=== PATIENT | female | born 1935 | race Caucasian/White ===

== ENCOUNTER 2016-12-03 13:25 | Emergency (ER) | payer MEDICARE, OTHER ==
--- NOTE | 2016-12-03 14:10 | ER Document Report ---
ED Medical Screen (RME) - General TRAVEL OUTSIDE OF THE [place] IN LAST 30 DAYS: No <PRISCILA SALGUERO - Last Filed: 12/03/16 14:08> <MAXIMO GARCIA - Last Filed: 12/03/16 20:06> - General Chief Complaint: Psych Problem Stated Complaint: PSYCH EVAL IVC WITH PAPERS Time Seen by Provider: 12/03/16 14:08 Notes: Patient is here under involuntary commitment because she says that her son is trying to get her morning. Her IVC paperwork says that the patient is spending all of her money irresponsibly. Patient has 10 children by 2 marriages and 1 of her children who is the son who took out her IVC paperwork. In the paperwork , he reports that the patient has been responding to a scan on the Internet to give her money. She admits having made contact with a man over the past 4 months and that she is to meet him soon. When questioned about how harris that may be, the patient says that she only knew her first and second husbands for matter of weeks each before she him. Patient has a history of atrial fibrillation on some medication, she does not know what. Hypothyroid. High cholesterol. Recent surgery for a rotator cuff tear. (PRISCILA SALGUERO) - Related Data Allergies/Adverse Reactions: ceftriaxone sodium [From Rocephin] Allergy (Verified 12/03/16 13:45) cholecalciferol (vitamin D3) [From Vitamin D] Allergy (Verified 12/03/16 13:45) ciprofloxacin [From Cipro] Allergy (Verified 12/03/16 13:45) ciprofloxacin HCl [From Cipro] Allergy (Verified 12/03/16 13:45) ergocalciferol (vitamin D2) [From Vitamin D] Allergy (Verified 12/03/16 13:45) Iodinated Contrast- Oral and IV Dye [IV Dye, Iodine Containing] Allergy ( Verified 12/03/16 13:45) Sulfa (Sulfonamide Antibiotics) Allergy (Verified 12/03/16 13:45) Home Medications: Current Home Medications Alendronate Sodium [Fosamax 70 mg Tablet] 1 tab PO .WEEKLY 12/03/16 [History] Apixaban [Eliquis 5 mg Tablet] 5 mg PO Q12 12/03/16 [History] Clonazepam [Klonopin] 0.5 mg PO QHS 12/03/16 [History] Clonazepam [Klonopin] 1 mg PO DAILY 12/03/16 [History] Fenofibrate 160 mg PO DAILY 12/03/16 [History] Levothyroxine Sodium [Synthroid 50 Mcg Tablet] 50 mcg PO DAILY 12/03/16 [History ] Ranitidine HCl [Zantac 150 mg Tablet] 150 mg PO BID 12/03/16 [History] Past Medical History - Past Medical History Cardiac Medical History: Reports: Hx Atrial Fibrillation, Hx Congestive Heart Failure, Hx Hypercholesterolemia Pulmonary Medical History: Reports: Hx Bronchitis, Hx COPD Denies: Hx Tuberculosis Renal/ Medical History: Denies: Hx Peritoneal Dialysis GI Medical History: Reports: Hx Gastroesophageal Reflux Disease Musculoskeltal Medical History: Reports Hx Arthritis Psychiatric Medical History: Reports: Hx Depression Past Surgical History: Reports: Hx Appendectomy, Hx Cholecystectomy, Hx Orthopedic Surgery - left hip/leg, Hx Tubal Ligation. Denies: Hx Pacemaker - Immunizations Hx Diphtheria, Pertussis, Tetanus Vaccination: No <PRISCILA SALGUERO - Last Filed: 12/03/16 14:08> Course - Laboratory Result Diagrams: 12/03/16 15:10 12/03/16 18:36 <MAXIMO GARCIA - Last Filed: 12/03/16 20:06> - Vital Signs Vital signs: Temp Pulse Resp BP Pulse Ox 97.4 F 78 18 152/64 H 97 12/03/16 13:45 12/03/16 13:45 12/03/16 13:45 12/03/16 13:45 12/03/16 13:45 - Laboratory Laboratory results interpreted by me: 12/03/16 12/03/16 12/03/16 14:30 15:10 18:36 WBC 3.6 L RDW 14.5 H Glucose 114 H Calcium 10.3 H Direct Bilirubin 0.5 H Alkaline Phosphatase 31 L Ur Leukocyte Esterase SMALL H Salicylates < 1.0 L Doctor's Discharge <PRISCILA SALGUERO - Last Filed: 12/03/16 14:08> <MAXIMO GARCIA - Last Filed: 12/03/16 20:06> - Discharge Clinical Impression: Adjustment disorder, UTI Clinical Impression: (Ruled Out): Assessment disorder NOS Condition: Stable Disposition: HOME, SELF-CARE Additional Instructions: Recommendations: Recommend you follow-up with a neurologist. He has a number of a neurologist, but is often your primary care physician will have a neurologist they like to work with. So I would check with Dr. Gould to see what neurologist he would like to follow-up with. Bring a copy of todays labs and CT report with you when you see your primary care doctor. Take the Macrobid as prescribed for the UTI for the next few days Continue current medicines Return to the emergency room for any further problems. Return to the ER for any thoughts of wanting to hurt yourself or others or any feelings of losing control. Prescriptions: Nitrofurantoin/Nitrofuran Mac [Macrobid 100 mg Capsule] 1 tab PO BID #9 capsule Referrals: ALBINA PIERSON MD [Primary Care Provider] - Follow up in 3-5 days ELLA LOCKWOOD MD [ACTIVE STAFF] - Follow up as needed (This is the number of the neurologist)
[2016-12-03 14:56] LABS: APPEARANCE,URINE SLIGHTLY-CLOUDY; BILIRUBIN,URINE NEGATIVE (NEGATIVE); GLUCOSE, URINE NEGATIVE (NEGATIVE); KETONES,URINE NEGATIVE (NEGATIVE); LEUKOCYTE ESTERASE,URINE SMALL (NEGATIVE); NITRITE,URINE NEGATIVE (NEGATIVE); PROTEIN,URINE NEGATIVE (NEGATIVE); URINE SPECIFIC GRAVITY 1.017; UROBILINOGEN,URINE NEGATIVE mg/dL (<2.0)
[2016-12-03 15:18] LABS: URINE BARBITURATES SCREEN NEGATIVE; URINE METHADONE SCREEN NEGATIVE; URINE OPIATES LOW NEGATIVE; URINE PHENCYCLIDINE SCREEN NEGATIVE
[2016-12-03 15:49] LABS: ABSOLUTE EOSINOPHILS # (AUTO) 0.1 10^3/uL (0.0-0.6); ABSOLUTE MONOCYTES (AUTO) 0.5 10^3/uL (0.1-1.4); ABSOLUTE NEUT (AUTO) 2.1 10^3/uL (1.7-8.2); BASOPHILS % (AUTO) 0.4 % (0-2); EOSINOPHILS % (AUTO) 2.8 % (0-6); HEMATOCRIT 38.5 % (36.0-47.0); HEMOGLOBIN 12.7 g/dL (12.0-15.5); HGB HCT DIFFERENCE -0.4; LYMPHOCYTES % (AUTO) 26.3 % (13-45); MEAN CORPUSCULAR HEMOGLOBIN 30.7 pg (27.0-33.4); MEAN CORPUSCULAR VOLUME 93 fl (80-97); MONOCYTES % (AUTO) 12.9 % (3-13); RED BLOOD COUNT 4.15 10^6/uL (3.72-5.28); RED CELL DISTRIBUTION WIDTH 14.5 % (11.5-14.0); SEGMENTED NEUTROPHILS % (AUTO) 57.6 % (42-78); WHITE BLOOD COUNT 3.6 10^3/uL (4.0-10.5)
[2016-12-03] MEDS ORDERED: ACETAMINOPHEN 325 MG TABLET PO ONE (16:15)
--- NOTE | 2016-12-03 17:23 | RADIOLOGY REPORT (SQ) ---
EXAM DESCRIPTION: CT HEAD WITHOUT COMPLETED DATE/TIME: 12/03/2016 5:10 pm REASON FOR STUDY: headache, eliquis COMPARISON: 2016. TECHNIQUE: Axial images acquired through the brain without intravenous contrast. Images reviewed wi th bone, brain and subdural windows. Images stored on PACS. All CT scanners at this facility use dose modulation, iterative reconstruction, and/or weight based d osing when appropriate to reduce radiation dose to as low as reasonably achievable (ALARA). [facility]: Dose Right [facility]: CareDose [facility]: Dose Right [facility]: Teradose 4D [facility]: Glassdoor RADIATION DOSE: 129.22 mGy. LIMITATIONS: None. FINDINGS: VENTRICLES: Normal size and contour. CEREBRUM: No masses. No hemorrhage. No midline shift. Normal madera/white matter differentiation. N o evidence for acute infarction. CEREBELLUM: No masses. No hemorrhage. No alteration of density. No evidence for acute infarction. EXTRAAXIAL SPACES: No fluid collections. No masses. ORBITS AND GLOBE: No intra- or extraconal masses. Normal contour of globe without masses. CALVARIUM: No fracture. PARANASAL SINUSES: No fluid or mucosal thickening. SOFT TISSUES: No mass or hematoma. OTHER: No other significant finding. IMPRESSION: NORMAL BRAIN CT WITHOUT CONTRAST. TECHNICAL DOCUMENTATION: JOB ID: [id number] Quality ID # [id number]: Final reports with documentation of one or more dose reduction techniques (e.g., Au tomated exposure control, adjustment of the mA and/or kV according to patient size, use of iterative reconstruction technique) 2010 [employer]- All Rights Reserved
[2016-12-03] MEDS ORDERED: NITROFURANTOIN MONOHYD/M-CRYST 100 MG CAPSULE PO ONE (17:59)
[2016-12-03 19:03] LABS: ALANINE AMINOTRANSFERASE 28 U/L (9-52); ALBUMIN 4.3 g/dL (3.5-5.0); ALKALINE PHOSPHATASE 31 U/L (38-126); ANION GAP 12 (5-19); ASPARTATE AMINO TRANSFERASE 32 U/L (14-36); BILIRUBIN,DIRECT 0.5 mg/dL (0.0-0.4); BLOOD UREA NITROGEN 15 mg/dL (7-20); CALCIUM 10.3 mg/dL (8.4-10.2); CARBON DIOXIDE 26 mmol/L (22-30); CHLORIDE 107 mmol/L (98-107); CREATININE RESULT 0.84 mg/dL (0.52-1.25); GLUCOSE 114 mg/dL (75-110); POTASSIUM 4.3 mmol/L (3.6-5.0); SODIUM 144.9 mmol/L (137-145); TOTAL PROTEIN 7.5 g/dL (6.3-8.2)
[2016-12-03 19:05] LABS: ALCOHOL < 10 mg/dL (NONE DETECTED)
[2016-12-03 19:33] LABS: THYROID STIMULATING HORMONE 3.2 uIU/mL (0.47-4.68)
--- NOTE | 2016-12-03 20:17 | ER Document Report ---
ED General - General Chief Complaint: Psych Problem Stated Complaint: PSYCH EVAL IVC WITH PAPERS Time Seen by Provider: 12/03/16 14:08 Mode of Arrival: Ambulatory Notes: This is an 80-year-old female brought in by the as an IVC for dangerous behavior, threatening severe, and judgment issues. The patient's family states that the patient is been in contact with someone over the Internet and has been sending money to this person. There are also concerns about the patient's safety and threats to other family members by the patient Family also states that patient has lost her keys and left the car on at one time. The patient states that she did send money to "friend" over the Internet and that it is her money and this is what she wants to do. She denies any suicidal ideations, she denies hearing voices, she denies any thoughts of wanting to hurt other people TRAVEL OUTSIDE OF THE [place] IN LAST 30 DAYS: No - HPI Onset: Last week Onset/Duration: Gradual Quality of pain: No pain Severity: None Pain Level: Denies Associated symptoms: denies: Chest pain, Fever, Shortness of breath Exacerbated by: Denies Relieved by: Denies Similar symptoms previously: No Recently seen / treated by doctor: No - Related Data Allergies/Adverse Reactions: ceftriaxone sodium [From Rocephin] Allergy (Verified 12/03/16 13:45) cholecalciferol (vitamin D3) [From Vitamin D] Allergy (Verified 12/03/16 13:45) ciprofloxacin [From Cipro] Allergy (Verified 12/03/16 13:45) ciprofloxacin HCl [From Cipro] Allergy (Verified 12/03/16 13:45) ergocalciferol (vitamin D2) [From Vitamin D] Allergy (Verified 12/03/16 13:45) Iodinated Contrast- Oral and IV Dye [IV Dye, Iodine Containing] Allergy ( Verified 12/03/16 13:45) Sulfa (Sulfonamide Antibiotics) Allergy (Verified 12/03/16 13:45) Home Medications: Current Home Medications Alendronate Sodium [Fosamax 70 mg Tablet] 1 tab PO .WEEKLY 12/03/16 [History] Apixaban [Eliquis 5 mg Tablet] 5 mg PO Q12 12/03/16 [History] Clonazepam [Klonopin] 0.5 mg PO QHS 12/03/16 [History] Clonazepam [Klonopin] 1 mg PO DAILY 12/03/16 [History] Fenofibrate 160 mg PO DAILY 12/03/16 [History] Levothyroxine Sodium [Synthroid 50 Mcg Tablet] 50 mcg PO DAILY 12/03/16 [History ] Ranitidine HCl [Zantac 150 mg Tablet] 150 mg PO BID 12/03/16 [History] Past Medical History - General Information source: Patient - Social History Smoking Status: Never Smoker Cigarette use (# per day): Yes - half Pack per day Chew tobacco use (# tins/day): No Frequency of alcohol use: None Drug Abuse: None Lives with: Alone Family History: None Patient has suicidal ideation: No Patient has homicidal ideation: No - Past Medical History Cardiac Medical History: Reports: Hx Atrial Fibrillation, Hx Congestive Heart Failure, Hx Hypercholesterolemia Pulmonary Medical History: Reports: Hx Bronchitis, Hx COPD Denies: Hx Tuberculosis Renal/ Medical History: Denies: Hx Peritoneal Dialysis GI Medical History: Reports: Hx Gastroesophageal Reflux Disease Musculoskeltal Medical History: Reports Hx Arthritis Psychiatric Medical History: Reports: Hx Depression Past Surgical History: Reports: Hx Appendectomy, Hx Cholecystectomy, Hx Orthopedic Surgery - left hip/leg, l shoulder 11/08, Hx Tubal Ligation. Denies : Hx Pacemaker - Immunizations Hx Diphtheria, Pertussis, Tetanus Vaccination: No Hx Pneumococcal Vaccination: 06/25/09 Review of Systems - Review of Systems Constitutional: denies: Chills, Fever EENT: No symptoms reported Cardiovascular: No symptoms reported Respiratory: No symptoms reported Gastrointestinal: No symptoms reported Genitourinary: No symptoms reported Female Genitourinary: No symptoms reported Musculoskeletal: No symptoms reported Skin: No symptoms reported Hematologic/Lymphatic: No symptoms reported Neurological/Psychological: See HPI Physical Exam - Vital signs Vitals: Temp Pulse Resp BP Pulse Ox 97.4 F 78 18 152/64 H 97 12/03/16 13:45 12/03/16 13:45 12/03/16 13:45 12/03/16 13:45 12/03/16 13:45 Notes: Physical exam: GENERAL:80-year-old female, alert and oriented 3, no acute distress. Patient appears comfortable. HEAD: Atraumatic, normocephalic. EYES: Pupils equal round and reactive to light, extraocular movements intact, sclera anicteric, conjunctiva are normal. ENT: oropharynx clear without exudates. Moist mucous membranes. NECK: Normal range of motion, supple without lymphadenopathy or JVD. LUNGS: Breath sounds clear to auscultation bilaterally and equal. No wheezes rales or rhonchi. HEART: Regular rate and rhythm without murmurs, rubs or gallops. ABDOMEN: Soft, normoactive bowel sounds. No tenderness to palpation. No guarding, no rebound. No masses appreciated. EXTREMITIES: Normal range of motion, no pitting or edema. No clubbing or cyanosis. NEUROLOGICAL: Cranial nerves II through XII grossly intact. 5/5, sensory grossly intact, gait normal, normal speech. PSYCH: Normal mood, normal affect. SKIN: Warm, Dry, normal turgor, no rashes or lesions noted. Course - Re-evaluation Re-evalutation: 12/03/16 20:12 Patient is accompanied by her youngest daughter. I have had a lengthy conversation with the patient (with the daughter at her side, and alone). I have had conversations with the patient's youngest daughter who has confirmed reports on the IVC paperwork. I had a long conversation with Dr. Hurtado. The patient is alert and oriented 3 at this time. She appears well-dressed and in control of her emotions. She does not exhibit any evidence of suicidality, homicidality or psychosis. The issue is her judgment with her finances. I do not see any medical reason for any acute changes in judgment. And as per further history obtained by Dr. Hurtado, who does not appear to be any significant changes in judgment and that is not the first time the patient has been the victim of a scam. The problem is that the patient does not exhibit any medical reason or psychiatric reason to keep her here against her will. Her labs are essentially normal. She may have a small UTI (she does not have any symptoms of a UTI) and I have initiated treatment. Dr Hurtado has given the family resources to follow-up with regarding financial guardianship. The family has already initiated Adult Protective Services and the son has reportedly gained control of the mother's bank account. Patient taken the weapons out of the home. The patient's car keys have been confiscated by the family as well. - Vital Signs Vital signs: Temp Pulse Resp BP Pulse Ox 97.4 F 78 18 152/64 H 97 12/03/16 13:45 12/03/16 13:45 12/03/16 13:45 12/03/16 13:45 12/03/16 13:45 - Laboratory Result Diagrams: 12/03/16 15:10 12/03/16 18:36 Laboratory results interpreted by me: 12/03/16 12/03/16 12/03/16 14:30 15:10 18:36 WBC 3.6 L RDW 14.5 H Glucose 114 H Calcium 10.3 H Direct Bilirubin 0.5 H Alkaline Phosphatase 31 L Ur Leukocyte Esterase SMALL H Salicylates < 1.0 L Discharge - Discharge Clinical Impression: Adjustment disorder, UTI Condition: Stable Disposition: HOME, SELF-CARE Additional Instructions: Recommendations: Recommend you follow-up with a neurologist. He has a number of a neurologist, but is often your primary care physician will have a neurologist they like to work with. So I would check with Dr. Gould to see what neurologist he would like to follow-up with. Bring a copy of todays labs and CT report with you when you see your primary care doctor. Take the Macrobid as prescribed for the UTI for the next few days Continue current medicines Return to the emergency room for any further problems. Return to the ER for any thoughts of wanting to hurt yourself or others or any feelings of losing control. Prescriptions: Nitrofurantoin/Nitrofuran Mac [Macrobid 100 mg Capsule] 1 tab PO BID #9 capsule Referrals: ELLA LOCKWOOD MD [ACTIVE STAFF] - Follow up as needed (This is the number of the neurologist) ALBINA PIERSON MD [Primary Care Provider] - Follow up in 3-5 days
[2016-12-03 20:56] VITALS: BP 145/60
--- NOTE | 2016-12-04 09:40 | EKG REPORT ---
SEVERITY:- ABNORMAL ECG - ATRIAL FIBRILLATION RBBB AND LAFB : Confirmed by: Lanny Connolly 04-Dec-2016 09:38:35
== END 2016-12-03 20:32 | disposition home or self-care (01) ==
LOC: ER 13:25
DX: F43.20 Adjustment disorder, unspecified (principal); N39.0 Urinary tract infection, site not specified; J44.9 Chronic obstructive pulmonary disease, unspecified; Z88.1 Allergy status to other antibiotic agents; Z88.8 Allergy status to other drugs, medicaments and biological substances; Z91.041 Radiographic dye allergy status; Z88.2 Allergy status to sulfonamides; Z72.0 Tobacco use
CPT/HCPCS: 93005; 99285; 36415; 84439; 80307 ×4; 84443; 85025; 80053; 81001; 70450; 93010; A9270 ×2; J8499

== ENCOUNTER 2017-07-15 14:39 | Emergency (ER) | payer MEDICARE, OTHER ==
[2017-07-15] MEDS ORDERED: ONDANSETRON 4 MG TAB.RAPDIS PO ONE (15:29)
--- NOTE | 2017-07-15 15:31 | ER Document Report ---
ED Flu Like - General Chief Complaint: Neck Problem Stated Complaint: NECK PAIN Time Seen by Provider: 07/15/17 15:09 Mode of Arrival: Ambulatory Information source: Patient TRAVEL OUTSIDE OF THE [place] IN LAST 30 DAYS: No - HPI Onset: Last week Notes: Patient arrives with complaints of flulike symptoms. She states that she has had a runny nose, cough, congestion, sore throat with body aches for the last 3- 4 days. The symptoms seem to be somewhat improving but now she noticed some swollen "lumps" in her neck that are sore to the touch over the last 24 hours. She denies any difficulty breathing or swallowing. She complains of nausea, but this is a chronic problem for the patient. She states that she was vomiting 2 days ago but has not vomited since and has been able to eat and drink without difficulty. She denies any new abdominal pain. She denies any diarrhea. She denies any blood in her stool. She denies any chest pain or significant difficulty breathing. She denies any rashes. She did not get a flu shot this year. She denies any other complaints at this time. - Related Data Allergies/Adverse Reactions: ceftriaxone sodium [From Rocephin] Allergy (Verified 07/15/17 14:40) cholecalciferol (vitamin D3) [From Vitamin D] Allergy (Verified 07/15/17 14:40) ciprofloxacin [From Cipro] Allergy (Verified 07/15/17 14:40) ciprofloxacin HCl [From Cipro] Allergy (Verified 07/15/17 14:40) ergocalciferol (vitamin D2) [From Vitamin D] Allergy (Verified 07/15/17 14:40) Iodinated Contrast- Oral and IV Dye [IV Dye, Iodine Containing] Allergy ( Verified 07/15/17 14:40) Sulfa (Sulfonamide Antibiotics) Allergy (Verified 07/15/17 14:40) Past Medical History - Social History Smoking Status: Unknown if Ever Smoked Family History: None - Past Medical History Cardiac Medical History: Reports: Hx Atrial Fibrillation, Hx Congestive Heart Failure, Hx Hypercholesterolemia Pulmonary Medical History: Reports: Hx Bronchitis, Hx COPD Denies: Hx Tuberculosis Renal/ Medical History: Denies: Hx Peritoneal Dialysis GI Medical History: Reports: Hx Gastroesophageal Reflux Disease Musculoskeltal Medical History: Reports Hx Arthritis Psychiatric Medical History: Reports: Hx Depression Past Surgical History: Reports: Hx Appendectomy, Hx Cholecystectomy, Hx Orthopedic Surgery - left hip/leg, l shoulder 11/08, Hx Tubal Ligation. Denies : Hx Pacemaker - Immunizations Hx Diphtheria, Pertussis, Tetanus Vaccination: No Hx Pneumococcal Vaccination: 06/25/09 Review of Systems - Review of Systems -: Yes All other systems reviewed and negative Physical Exam - Vital signs Vitals: Temp Pulse Resp BP Pulse Ox 97.4 F 72 18 82/62 L 100 07/15/17 14:44 07/15/17 14:44 07/15/17 14:44 07/15/17 14:44 07/15/17 14:44 - Notes Notes: GENERAL: alert, cooperative, nontoxic, no distress. HEAD: normocephalic, atraumatic EYES: conjunctiva pink without discharge, no external redness or swelling. EARS: no external swelling, no external redness. TMs pearly madera without perforation or erythema. No sign of mastoiditis. NOSE: atraumatic, no external swelling MOUTH/THROAT: mucous membranes moist and pink, posterior pharynx without erythema, swelling, exudate. No trismus or drooling. NECK: soft, supple, full range of motion, no meningismus. Mild bilateral anterior cervical lymphadenopathy. No redness. No stridor. CHEST: no distress, lungs clear and equal throughout. No wheezing, rales, rhonchi. CARDIAC: regular rate and rhythm, no murmur, normal capillary refill, normal pulses. No peripheral edema noted. ABDOMEN: Soft, nontender. No mass, no rebound tenderness or guarding. BACK: full range of motion, no CVA tenderness. EXTREMITIES: full range of motion of all extremities. No redness, no swelling. NEURO: alert and oriented x 3, no focal deficits, full range of motion of all extremities. PYSCH: appropriate mood, affect. Patient is cooperative. SKIN: pink, warm, dry, no rash. Course - Re-evaluation Re-evalutation: 07/15/17 16:51 Patient is nontoxic appearing. The patient's had flulike symptoms for the last few days yesterday developed some lymph node swelling in her neck which was concerning to her. Is mildly painful to the touch. She is noted to have anterior cervical lymphadenopathy bilaterally which is slightly tender to the touch with no throat or neck swelling. Remainder of her exam is benign. Her initial blood pressure was noted to be 82/62. Is unclear if this was a true blood pressure as the patient denies any complaints of syncope, near syncope and repeat blood pressure is 120s over upper 40s. Patient's rapid strep and influenza screens were negative. Based on the fact that the patient has had flulike symptoms and based on the CDC's recommendations of influenza treatment with her age and chronic A. fib I will prophylactically place her on Tamiflu. She instructed to drink plenty fluids, follow-up with her family doctor if not better in the next 3-5 days, sooner for increasing symptoms, difficult to breathing or swallowing, or any further concerns. Lymph nodes are likely reactive due to her current illness. I explained that if the lymph node swelling does not improve within the next few weeks that she needs to have this evaluated as well. The patient's emergency department workup and current diagnosis were explained to the patient and or family. Follow-up instructions were provided. Medications if prescribed were discussed. Instructions for when to return to the emergency department including specific worrisome symptoms were discussed with the patient and/or family. - Vital Signs Vital signs: Temp Pulse Resp BP Pulse Ox 97.4 F 72 18 82/62 L 100 07/15/17 14:44 07/15/17 14:44 07/15/17 14:44 07/15/17 14:44 07/15/17 14:44 Discharge - Discharge Clinical Impression: Viral syndrome, Sore throat, Lymphadenopathy Condition: Stable Disposition: HOME, SELF-CARE Instructions: Viral Syndrome ([facility]) Additional Instructions: Tylenol as needed for pain. Drink plenty of fluids. Take medications as prescribed. Follow-up with your primary doctor if your illness symptoms are not better in the next 3-5 days. Follow-up with your family doctor if the lymph node swelling does not improve within 2 weeks. Follow-up sooner for any worsening symptoms, high fevers, difficulty breathing or swallowing, passing out , or any further concerns. Forms: Smoking Cessation Education
[2017-07-15 16:07] LABS: A TYPE INFLUENZA AG NEGATIVE (NEGATIVE); B INFLUENZA AG NEGATIVE (NEGATIVE)
[2017-07-15 16:52] VITALS: BP 126/43
== END 2017-07-15 17:12 | disposition home or self-care (01) ==
LOC: ER 14:39
DX: J02.9 Acute pharyngitis, unspecified (principal); B34.9 Viral infection, unspecified; R59.0 Localized enlarged lymph nodes; R05 Cough; R09.89 Other specified symptoms and signs involving the circulatory and respiratory systems; R11.0 Nausea; I48.2 Chronic atrial fibrillation; I10 Essential (primary) hypertension; J44.9 Chronic obstructive pulmonary disease, unspecified; Z88.1 Allergy status to other antibiotic agents; Z88.8 Allergy status to other drugs, medicaments and biological substances; Z91.041 Radiographic dye allergy status; Z88.2 Allergy status to sulfonamides
CPT/HCPCS: 99283; 87070; 87880; 87077; 87804; A9270; S0119

== ENCOUNTER 2017-07-18 22:29 | Emergency (ER) | payer MEDICARE, OTHER ==
--- NOTE | 2017-07-19 02:20 | ER Document Report ---
ED GI/ - General Chief Complaint: Constipation Stated Complaint: BLEEDING FROM RECTUM Time Seen by Provider: 07/19/17 02:12 Notes: Patient is an 81-year-old female comes emergency department for chief complaint of difficulty having a bowel movement and rectal bleeding. She states that she has been trying to have a bowel movement for 2 days, prior to arrival she was straining and then she began to have bright red blood per rectum. She has tried putting into suppositories today. She is on Eliquis for atrial fibrillation. She does report general lower abdominal discomfort at this time. She denies lightheadedness, shortness of breath, fever or chills. She is currently on penicillin for strep throat. TRAVEL OUTSIDE OF THE [place] IN LAST 30 DAYS: No - Related Data Allergies/Adverse Reactions: ceftriaxone sodium [From Rocephin] Allergy (Verified 07/15/17 14:40) cholecalciferol (vitamin D3) [From Vitamin D] Allergy (Verified 07/15/17 14:40) ciprofloxacin [From Cipro] Allergy (Verified 07/15/17 14:40) ciprofloxacin HCl [From Cipro] Allergy (Verified 07/15/17 14:40) ergocalciferol (vitamin D2) [From Vitamin D] Allergy (Verified 07/15/17 14:40) Iodinated Contrast- Oral and IV Dye [IV Dye, Iodine Containing] Allergy ( Verified 07/15/17 14:40) Sulfa (Sulfonamide Antibiotics) Allergy (Verified 07/15/17 14:40) Past Medical History - General Information source: Patient - Social History Smoking Status: Never Smoker Cigarette use (# per day): No Frequency of alcohol use: None Drug Abuse: None Lives with: Family Family History: None - Past Medical History Cardiac Medical History: Reports: Hx Atrial Fibrillation, Hx Congestive Heart Failure, Hx Hypercholesterolemia Pulmonary Medical History: Reports: Hx Bronchitis, Hx COPD Denies: Hx Tuberculosis Renal/ Medical History: Denies: Hx Peritoneal Dialysis GI Medical History: Reports: Hx Gastroesophageal Reflux Disease Musculoskeltal Medical History: Reports Hx Arthritis Psychiatric Medical History: Reports: Hx Depression Past Surgical History: Reports: Hx Appendectomy, Hx Cholecystectomy, Hx Orthopedic Surgery - left hip/leg, l shoulder 11/08, Hx Tubal Ligation. Denies : Hx Pacemaker - Immunizations Hx Diphtheria, Pertussis, Tetanus Vaccination: No Hx Pneumococcal Vaccination: 06/25/09 Review of Systems - Review of Systems Constitutional: No symptoms reported EENT: No symptoms reported Cardiovascular: No symptoms reported Respiratory: No symptoms reported Gastrointestinal: See HPI Genitourinary: No symptoms reported Female Genitourinary: No symptoms reported Musculoskeletal: No symptoms reported Skin: No symptoms reported Hematologic/Lymphatic: No symptoms reported Neurological/Psychological: No symptoms reported Physical Exam - Vital signs Vitals: Temp Pulse Resp BP Pulse Ox 98.0 F 68 20 144/55 H 95 07/18/17 23:46 07/18/17 23:46 07/18/17 23:46 07/18/17 23:46 07/18/17 23:46 Interpretation: Normal - General General appearance: Appears well, Alert In distress: None - HEENT Head: Normocephalic, Atraumatic Eyes: Normal Pupils: PERRL - Respiratory Respiratory status: No respiratory distress Chest status: Nontender Breath sounds: Normal Chest palpation: Normal - Cardiovascular Rhythm: Regular Heart sounds: Normal auscultation Murmur: No - Abdominal Inspection: Normal Distension: No distension. No: Distended Bowel sounds: Normal Tenderness: Tender - There is minimal generalized lower abdominal tenderness, nonspecific, no guarding - Rectal Stool: No: Black, Bloody Hemorrhoids: Internal, External Notes: Patient with internal and external hemorrhoids on exam although they do not appear to be bleeding, digital rectal exam shows a hard ball of fecal material in the rectum. GOVIND Daniel present during exam. - Back Back: Normal, Nontender - Extremities General upper extremity: Normal inspection, Nontender, Normal color, Normal ROM , Normal temperature General lower extremity: Normal inspection, Nontender, Normal color, Normal ROM , Normal temperature, Normal weight bearing. No: Ayo's sign - Neurological Neuro grossly intact: Yes Cognition: Normal Orientation: AAOx4 Johanny Coma Scale Eye Opening: Spontaneous Johanny Coma Scale Verbal: Oriented Johanny Coma Scale Motor: Obeys Commands Johanny Coma Scale Total: 15 Speech: Normal Motor strength normal: LUE, RUE, LLE, RLE Sensory: Normal - Psychological Associated symptoms: Normal affect, Normal mood - Skin Skin Temperature: Warm Skin Moisture: Dry Skin Color: Normal Course - Re-evaluation Re-evalutation: Patient with no current bleeding on my examination. She does have hemorrhoids. Large hard ball of stool noted in the rectum, this was digitally removed gradually. Patient tolerated this very well. Afterwards patient had resolution of her symptoms. She states she is much more comfortable now. She had no additional rectal bleeding during her stay. CBC unremarkable with no significant findings. Acute abdominal series without any concerning abnormality , this was performed after fecal impaction was removed. Discussed with patient , provided stool softeners, medications, follow-up instructions, return precautions. Patient and her sister state understanding and agreement. - Vital Signs Vital signs: Temp Pulse Resp BP Pulse Ox 98.4 F 61 16 141/78 H 97 07/19/17 05:38 07/19/17 05:38 07/19/17 05:38 07/19/17 05:38 07/19/17 05:38 - Laboratory Result Diagrams: 07/19/17 03:05 Laboratory results interpreted by me: 07/19/17 03:05 Hgb 11.7 L Hct 35.1 L Discharge - Discharge Clinical Impression: Fecal impaction in rectum Abdominal pain Qualifiers: Abdominal location: lower abdomen, unspecified Qualified Code(s): R10.30 - Lower abdominal pain, unspecified Condition: Stable Disposition: HOME, SELF-CARE Additional Instructions: Your evaluation showed a fecal impaction, please take the stool softener as prescribed for the next several days, drink plenty of fluids, eat fiber. Avoid straining on the toilet. Follow-up with your primary care. Return if you worsen including return or worsening abdominal pain, fever of 100.4 or greater, large amount of bleeding, vomiting, passing out, or any other concerning symptoms. Prescriptions: Docusate Sodium [Colace 100 mg Capsule] 100 mg PO ASDIR PRN #30 capsule PRN Reason:
[2017-07-19 03:22] LABS: ABSOLUTE EOSINOPHILS # (AUTO) 0.1 10^3/uL (0.0-0.6); ABSOLUTE LYMPHOCYTES (AUTO) 1.2 10^3/uL (0.5-4.7); ABSOLUTE MONOCYTES (AUTO) 0.6 10^3/uL (0.1-1.4); ABSOLUTE NEUT (AUTO) 4.9 10^3/uL (1.7-8.2); BASOPHILS % (AUTO) 0.5 % (0-2); EOSINOPHILS % (AUTO) 1.2 % (0-6); HEMATOCRIT 35.1 % (36.0-47.0); HEMOGLOBIN 11.7 g/dL (12.0-15.5); LYMPHOCYTES % (AUTO) 17.3 % (13-45); MEAN CORPUSCULAR HEMOGLOBIN 30.4 pg (27.0-33.4); MEAN CORPUSCULAR HGB CONC 33.3 g/dL (32.0-36.0); MEAN CORPUSCULAR VOLUME 92 fl (80-97); MONOCYTES % (AUTO) 8.9 % (3-13); PLATELET COUNT 182 10^3/uL (150-450); RED BLOOD COUNT 3.84 10^6/uL (3.72-5.28); RED CELL DISTRIBUTION WIDTH 13.9 % (11.5-14.0); SEGMENTED NEUTROPHILS % (AUTO) 72.1 % (42-78); TOTAL CELLS COUNTED % (AUTO) 100 %; WHITE BLOOD COUNT 6.8 10^3/uL (4.0-10.5)
--- NOTE | 2017-07-19 04:19 | RADIOLOGY REPORT (SQ) ---
EXAM DESCRIPTION: ACUTE ABDOMEN SERIES CLINICAL HISTORY: no recent bowel movement, abd pain COMPARISON: 12/17/2015 FINDINGS: Single view of the pelvis with upright and spine views of the abdomen. Atherosclerotic calcification and tortuosity of thoracic aorta. Cardiomegaly. No consolidation, pneumothorax, pleural effusion. Prior L3 vertebroplasty. Prior cholecystectomy. Scattered air-filled loops of nondilated large and small bowel. No free intraperitoneal air. IMPRESSION: 1. No acute pulmonary process. 2. Nonobstructive bowel gas pattern.
[2017-07-19 05:39] VITALS: BP 141/78
== END 2017-07-19 05:39 | disposition home or self-care (01) ==
LOC: ER 22:29
DX: K56.41 Fecal impaction (principal); R10.30 Lower abdominal pain, unspecified; K62.5 Hemorrhage of anus and rectum; K64.8 Other hemorrhoids; K64.4 Residual hemorrhoidal skin tags; J44.9 Chronic obstructive pulmonary disease, unspecified; J02.0 Streptococcal pharyngitis; I48.91 Unspecified atrial fibrillation; Z79.01 Long term (current) use of anticoagulants; Z88.8 Allergy status to other drugs, medicaments and biological substances; Z88.1 Allergy status to other antibiotic agents; Z91.041 Radiographic dye allergy status; Z88.2 Allergy status to sulfonamides; Z90.49 Acquired absence of other specified parts of digestive tract
CPT/HCPCS: 36415; 74022; 85025; 99283

== ENCOUNTER 2017-10-30 20:00 | Emergency (ER) | payer MEDICARE, OTHER ==
--- NOTE | 2017-10-30 20:54 | ER Document Report ---
ED General - General Chief Complaint: Dizziness Stated Complaint: DIFFICULTY BREATHING/FEET SWOLLEN Time Seen by Provider: 10/30/17 20:53 Mode of Arrival: Ambulatory Information source: Patient TRAVEL OUTSIDE OF THE [place] IN LAST 30 DAYS: No - HPI Onset: Last week Onset/Duration: Gradual, Worse - LAST 2 DAYS Quality of pain: Dull - HEADACHE Associated symptoms: Nonproductive cough, Headache, Leg swelling, Shortness of breath, Other - SYNCOPE. denies: Chills, Fever, Hurts to breath Exacerbated by: Standing Relieved by: Remaining still Similar symptoms previously: Yes Recently seen / treated by doctor: No - Related Data Allergies/Adverse Reactions: ceftriaxone sodium [From Rocephin] Allergy (Verified 07/15/17 14:40) cholecalciferol (vitamin D3) [From Vitamin D] Allergy (Verified 07/15/17 14:40) ciprofloxacin [From Cipro] Allergy (Verified 07/15/17 14:40) ciprofloxacin HCl [From Cipro] Allergy (Verified 07/15/17 14:40) ergocalciferol (vitamin D2) [From Vitamin D] Allergy (Verified 07/15/17 14:40) Iodinated Contrast- Oral and IV Dye [IV Dye, Iodine Containing] Allergy ( Verified 07/15/17 14:40) Sulfa (Sulfonamide Antibiotics) Allergy (Verified 07/15/17 14:40) Past Medical History - General Information source: Patient - Social History Smoking Status: Never Smoker Cigarette use (# per day): No Chew tobacco use (# tins/day): No Frequency of alcohol use: None Drug Abuse: None Lives with: Family Family History: None Patient has suicidal ideation: No Patient has homicidal ideation: No - Past Medical History Cardiac Medical History: Reports: Hx Atrial Fibrillation, Hx Congestive Heart Failure, Hx Hypercholesterolemia Pulmonary Medical History: Reports: Hx Bronchitis, Hx COPD Denies: Hx Tuberculosis Neurological Medical History: Reports: None. Denies: Hx Cerebrovascular Accident Endocrine Medical History: Reports: None Renal/ Medical History: Reports: None. Denies: Hx Peritoneal Dialysis Malignancy Medical History: Reports: None GI Medical History: Reports: Hx Gastroesophageal Reflux Disease Musculoskeltal Medical History: Reports Hx Arthritis Psychiatric Medical History: Reports: Hx Depression Past Surgical History: Reports: Hx Appendectomy, Hx Cholecystectomy, Hx Orthopedic Surgery - left hip/leg, l shoulder 11/08, Hx Tubal Ligation. Denies : Hx Pacemaker - Immunizations Hx Diphtheria, Pertussis, Tetanus Vaccination: No Hx Pneumococcal Vaccination: 06/25/09 Review of Systems - Review of Systems Constitutional: No symptoms reported. denies: Chills, Fever EENT: No symptoms reported Cardiovascular: See HPI, Dyspnea, Edema Respiratory: See HPI Gastrointestinal: No symptoms reported Female Genitourinary: Post menopausal Musculoskeletal: No symptoms reported Skin: No symptoms reported Neurological/Psychological: No symptoms reported Physical Exam - Vital signs Vitals: Temp Pulse Resp BP Pulse Ox 97.4 F 69 20 136/55 H 98 10/30/17 20:14 10/30/17 20:14 10/30/17 20:14 10/30/17 20:14 10/30/17 20:14 Interpretation: Normal. No: Hypotensive, Tachycardic, Hypoxic, Tachypneic, Febrile - General General appearance: Appears well, Alert In distress: None - HEENT Head: Normocephalic Eyes: Normal Conjunctiva: Normal Ears: Normal Nasal: Normal Mouth/Lips: Normal Mucous membranes: Normal - Respiratory Respiratory status: No respiratory distress Breath sounds: Normal - Cardiovascular Rhythm: Irregularly irregular Heart sounds: Normal auscultation Murmur: No - Abdominal Inspection: Normal Distension: No distension - Extremities General upper extremity: Normal inspection General lower extremity: Edema - TRACE, BILAT. - Neurological Neuro grossly intact: Yes Cognition: Normal Orientation: AAOx4 - Psychological Associated symptoms: Normal affect, Normal mood - Skin Skin Temperature: Warm Skin Moisture: Dry Skin Color: Normal Skin Turgor: Elastic Course - Vital Signs Vital signs: Temp Pulse Resp BP Pulse Ox 97.4 F 69 19 143/63 H 97 10/30/17 20:14 10/30/17 20:14 10/30/17 22:59 10/30/17 22:59 10/30/17 22:59 - Laboratory Result Diagrams: 10/30/17 21:14 10/30/17 21:14 Laboratory results interpreted by me: 10/30/17 10/30/17 10/30/17 21:14 21:14 21:14 WBC 3.9 L Hgb 11.8 L Hct 35.8 L RDW 14.3 H Plt Count 139 L Sodium 145.3 H Chloride 110 H Glucose 116 H Calcium 10.7 H Direct Bilirubin 0.5 H Alkaline Phosphatase 32 L NT-Pro-B Natriuret Pep 2790 H Discharge - Discharge Clinical Impression: Fluid retention in legs, Dizziness Dyspnea Qualifiers: Dyspnea type: unspecified Qualified Code(s): R06.00 - Dyspnea, unspecified Atrial fibrillation Qualifiers: Atrial fibrillation type: chronic Qualified Code(s): I48.2 - Chronic atrial fibrillation Condition: Stable Disposition: HOME, SELF-CARE Instructions: Dizziness ([facility]), Dependent Edema ([facility]), Lasix Additional Instructions: TAKE LASIX, 20 mg DAILY BEGINNING TOMORROW (SUNDAY). CONTINUE YOUR OTHER MEDS USUAL. FOLLOW UP WITH YOUR PRIMARY CARE PROVIDER, CALL OFFICE TOMORROW FOR APPOINTMENT WITHIN NEXT 5-7 DAYS IF POSSIBLE. RETURN TO E.R. IF PROBLEMS. Prescriptions: Furosemide 20 mg PO QAM #7 tablet
[2017-10-30 21:31] LABS: ABSOLUTE EOSINOPHILS # (AUTO) 0.1 10^3/uL (0.0-0.6); ABSOLUTE MONOCYTES (AUTO) 0.3 10^3/uL (0.1-1.4); ABSOLUTE NEUT (AUTO) 2.5 10^3/uL (1.7-8.2); BASOPHILS % (AUTO) 0.4 % (0-2); EOSINOPHILS % (AUTO) 1.4 % (0-6); HEMATOCRIT 35.8 % (36.0-47.0); HEMOGLOBIN 11.8 g/dL (12.0-15.5); LYMPHOCYTES % (AUTO) 25.5 % (13-45); MEAN CORPUSCULAR HEMOGLOBIN 30.5 pg (27.0-33.4); MEAN CORPUSCULAR HGB CONC 32.9 g/dL (32.0-36.0); MEAN CORPUSCULAR VOLUME 93 fl (80-97); MONOCYTES % (AUTO) 8.9 % (3-13); PLATELET COUNT 139 10^3/uL (150-450); RED BLOOD COUNT 3.86 10^6/uL (3.72-5.28); RED CELL DISTRIBUTION WIDTH 14.3 % (11.5-14.0); SEGMENTED NEUTROPHILS % (AUTO) 63.8 % (42-78); TOTAL CELLS COUNTED % (AUTO) 100 %; WHITE BLOOD COUNT 3.9 10^3/uL (4.0-10.5)
--- NOTE | 2017-10-30 21:40 | RADIOLOGY REPORT (SQ) ---
EXAM DESCRIPTION: CHEST SINGLE VIEW COMPLETED DATE/TIME: 10/30/2017 9:31 pm REASON FOR STUDY: DYSPNEA, COUGH COMPARISON: 12/17/2015 EXAM PARAMETERS: NUMBER OF VIEWS: One view. TECHNIQUE: Single frontal radiographic view of the chest acquired. RADIATION DOSE: NA LIMITATIONS: None. FINDINGS: LUNGS AND PLEURA: No opacities, masses or pneumothorax. No pleural effusion. MEDIASTINUM AND HILAR STRUCTURES: No masses. Contour normal. HEART AND VASCULAR STRUCTURES: Heart normal in size. Normal vasculature. BONES: No acute findings. HARDWARE: None in the chest. OTHER: No other significant finding. IMPRESSION: NO ACUTE RADIOGRAPHIC FINDING IN THE CHEST. TECHNICAL DOCUMENTATION: JOB ID: [id number] [employer] All Rights Reserved Reading location - IP/workstation name: [email or web address]
[2017-10-30 21:47] LABS: ALANINE AMINOTRANSFERASE 25 U/L (9-52); ALBUMIN 4.1 g/dL (3.5-5.0); ALKALINE PHOSPHATASE 32 U/L (38-126); ANION GAP 9 (5-19); ASPARTATE AMINO TRANSFERASE 34 U/L (14-36); BILIRUBIN,DIRECT 0.5 mg/dL (0.0-0.4); BILIRUBIN,TOTAL 0.8 mg/dL (0.2-1.3); BLOOD UREA NITROGEN 19 mg/dL (7-20); CALCIUM 10.7 mg/dL (8.4-10.2); CARBON DIOXIDE 26 mmol/L (22-30); CHLORIDE 110 mmol/L (98-107); CREATINE KINASE 126 U/L (30-135); GLUCOSE 116 mg/dL (75-110); SODIUM 145.3 mmol/L (137-145)
[2017-10-30 21:59] LABS: CREATINE KINASE MB 2.31 ng/mL (<4.55); TROPONIN I 0.013 ng/mL
[2017-10-30] MEDS ORDERED: FUROSEMIDE INJ/PF 20 MG/2 ML SDV IV ONE (22:18)
[2017-10-31 01:02] VITALS: BP 131/66
--- NOTE | 2017-10-31 07:45 | EKG REPORT ---
SEVERITY:- ABNORMAL ECG - ATRIAL FIBRILLATION RBBB AND LAFB : Confirmed by: Damián Roger MD 31-Oct-2017 07:44:59
== END 2017-10-31 01:02 | disposition home or self-care (01) ==
LOC: ER 20:00
DX: R42 Dizziness and giddiness (principal); R51 Headache; I48.2 Chronic atrial fibrillation; R06.00 Dyspnea, unspecified; R06.02 Shortness of breath; R60.9 Edema, unspecified; I50.9 Heart failure, unspecified; E78.00 Pure hypercholesterolemia, unspecified; Z88.6 Allergy status to analgesic agent; Z88.2 Allergy status to sulfonamides; Z90.49 Acquired absence of other specified parts of digestive tract; Z98.51 Tubal ligation status
CPT/HCPCS: 93005; 99284; 96374; 36415; 82553; 82550; 85025; 80053; 84484; 83880; 71045; 93010; J1940

== ENCOUNTER 2018-01-01 14:19 | Emergency (ER) | payer MEDICARE, OTHER ==
--- NOTE | 2018-01-01 14:49 | ER Document Report ---
ED Fall <ADOLFO JIN - Last Filed: 01/01/18 15:27> - General Mode of Arrival: Ambulatory Information source: Patient TRAVEL OUTSIDE OF THE [place] IN LAST 30 DAYS: No <SIN KATHLEEN - Last Filed: 01/04/18 09:33> - General Chief Complaint: Fall Stated Complaint: FALL/HEAD PAIN Time Seen by Provider: 01/01/18 14:43 Notes: Patient is an 82 year old female with Afib, CHF, GERD, hypothyordism, high triglycerides presents to the emergency department accompanied by daughter complaining of an syncopal episode and head pain onset prior to arrival.. Patient states she was bent over, cleaning her bird bath for an extended period of time. She states when she stood up she felt light headed and proceeded to have a syncopal episode. She states due to the syncopal episode she fell backwards and hit the back of her head and the dorsal aspect of her left hand. Patient states she has had similar episodes where she would feel light headed and dizzy for the last 4-5 months. Patient is currently on Eloquis and Synthroid. (SIN KATHLEEN) - Related data Allergies/Adverse Reactions: ceftriaxone sodium [From Rocephin] Allergy (Verified 01/01/18 14:27) ciprofloxacin [From Cipro] Allergy (Verified 01/01/18 14:27) ciprofloxacin HCl [From Cipro] Allergy (Verified 01/01/18 14:27) Iodinated Contrast- Oral and IV Dye [IV Dye, Iodine Containing] Allergy ( Verified 01/01/18 14:27) Sulfa (Sulfonamide Antibiotics) Allergy (Verified 01/01/18 14:27) Past Medical History - General Information source: Patient - Social History Smoking Status: Unknown if Ever Smoked Family History: None - Past Medical History Cardiac Medical History: Reports: Hx Atrial Fibrillation, Hx Congestive Heart Failure Pulmonary Medical History: Reports: Hx Bronchitis, Hx COPD Endocrine Medical History: Reports: Hx Hypothyroidism GI Medical History: Reports: Hx Gastroesophageal Reflux Disease Musculoskeletal Medical History: Reports Hx Arthritis Psychiatric Medical History: Reports: Hx Depression Past Surgical History: Reports: Hx Appendectomy, Hx Cholecystectomy, Hx Orthopedic Surgery - left hip/leg, l shoulder 11/08, Hx Tubal Ligation - Immunizations Hx Diphtheria, Pertussis, Tetanus Vaccination: No Hx Pneumococcal Vaccination: 06/25/09 <SIN KATHLEEN - Last Filed: 01/04/18 09:33> Review of Systems - Review of Systems Constitutional: No symptoms reported EENT: No symptoms reported Cardiovascular: See HPI, Syncope, Dizziness, Lightheaded Respiratory: No symptoms reported Gastrointestinal: No symptoms reported Genitourinary: No symptoms reported Female Genitourinary: No symptoms reported Musculoskeletal: See HPI Skin: See HPI Hematologic/Lymphatic: No symptoms reported Neurological/Psychological: No symptoms reported -: Yes All other systems reviewed and negative <SIN KATHLEEN - Last Filed: 01/04/18 09:33> Physical Exam - HEENT Head: Tenderness - There is some tender swelling to the occipital region with 2 very small pinpoint abrasions or superficial punctures without active bleeding. Neck: Normal, Supple - There is no tenderness to palpate the neck and patient is able to lift her head up and look around once the hard collar was removed. <ADOLFO JIN - Last Filed: 01/01/18 15:27> <FRANNIESIN FALCON - Last Filed: 01/04/18 09:33> - Vital signs Vitals: Temp Pulse Resp BP Pulse Ox 97.4 F 57 L 18 137/51 H 99 01/01/18 14:33 01/01/18 14:33 01/01/18 14:33 01/01/18 14:33 01/01/18 14:33 - Notes Notes: GENERAL: Alert, interacts well. No acute distress. HEAD: Normocephalic. See above. EYES: Pupils equal, round, and reactive to light. Extraocular movements intact. ENT: Oral mucosa moist, tongue midline. NECK: Full range of motion. Supple. Trachea midline. LUNGS: Clear to auscultation bilaterally, no wheezes, rales, or rhonchi. No respiratory distress. HEART: Irregular. No murmurs, gallops, or rubs. ABDOMEN: Soft, non-tender. Non-distended. Bowel sounds present in all 4 quadrants. EXTREMITIES: Moves all 4 extremities spontaneously. No edema. Dorsal aspect of left hand on the third metacarpal contains a light blue area which expands in a darker blue color, no swelling. Patient states that this is a anay but it appears to have expanded since her fall. No other evidence of injuries on extremities. NEUROLOGICAL: Alert and oriented x3. Normal speech. PSYCH: Normal affect, normal mood. SKIN: Warm, dry, normal turgor. (SIN KATHLEEN) - Vital Signs Vital signs: Temp Pulse Resp BP Pulse Ox 97.4 F 57 L 19 127/39 H 100 01/01/18 14:33 01/01/18 14:33 01/01/18 15:59 01/01/18 16:00 01/01/18 15:59 Discharge <ADOLFO JIN - Last Filed: 01/01/18 15:27> <SIN KATHLEEN - Last Filed: 01/04/18 09:33> - Discharge Clinical Impression: Fall from standing Qualifiers: Encounter type: initial encounter Qualified Code(s): W19.XXXA - Unspecified fall, initial encounter Contusion of occipital region of scalp Qualifiers: Encounter type: initial encounter Qualified Code(s): S00.03XA - Contusion of scalp, initial encounter Syncopal episodes Qualifiers: Syncope type: unspecified Qualified Code(s): R55 - Syncope and collapse Condition: Stable Disposition: HOME, SELF-CARE Additional Instructions: Scalp Hematoma: You have a scalp hematoma. This is a bump caused by blood underneath the scalp. This is a common injury, and usually causes only mild local pain or headache. There is no evidence of a skull fracture or of a brain injury. A scalp hematoma will usually disappear after a few days. Put cold packs on the swollen area for 20-30 minutes every 2-3 hours until the swelling improves. Use acetaminophen or ibuprofen for pain. Avoid aspirin because this may increase bleeding under the scalp. You may have a mild headache for a few days. Call the doctor or return if there is severe headache, confusion, personality changes, vomiting, severe dizziness, or difficulty with balance or coordination. Syncopal Episode: Syncope (fainting or near-fainting) can occur from many different health problems. Or it can be a simple fainting spell requiring no treatment. It is safe for you to go home, but further evaluation will likely be necessary. Your work-up may include tests for internal bleeding, heart disease, medication problems, or near-strokes. Tests are not always required, however, depending on the nature of your problem. The warning signs of an impending faint include: dizziness, lightheadedness , nausea, hot flashes, tingling, and weakness. If this happens, lay down and put your feet up, then wait until all of these symptoms have passed before standing up again. If these episodes become recurrent, or if you develop chest pain, heart palpitations, mental confusion, blurred vision, or headache, then you should call the physician, or go to the emergency room. Head Injury Precautions: At this point, there is no evidence that your head injury is serious. Observation is necessary, however. Take only clear liquids for the first few hours, unless told otherwise by the doctor. If no pain medication was prescribed, you may take acetaminophen according to the directions on the bottle. Do not take any medication that may alter your level of alertness (unless you've discussed it with the doctor first) . Limit activity for the first 24 hours. Bed rest is best. During the first 24 hours, check to see approximately every two to three hours that the patient is easily arousable, responds normally, and can perform common tasks such as walking without difficulty. Contact your doctor or go to the hospital if any of the following things occur: Persistent vomiting, difficulty in arousing the patient, worsening or continued headache, or failure to improve as expected. Head injuries can cause symptoms that persist for a few days or even a few weeks. Use ice packs to the back of your head to reduce swelling today. Rest and avoid bending over and standing up quickly. Follow-up with your doctor to discuss these syncopal episodes that occur when you stand up too quickly. RETURN TO THE EMERGENCY ROOM IF ANY NEW OR WORSENING SYMPTOMS. Scribe Attestation: 01/01/18 15:31 I personally performed the services described in the documentation, reviewed and edited the documentation which was dictated to the scribe in my presence, and it accurately records my words and actions. (ADOLFO JIN) Scribe Documentation - Scribe Written by Simón:: Simón Krishna, 01/01/2018 15:32 acting as scribe for :: Jihan <SIN KATHLEEN - Last Filed: 01/04/18 09:33>
--- NOTE | 2018-01-01 15:13 | RADIOLOGY REPORT (SQ) ---
EXAM DESCRIPTION: CT HEAD WITHOUT COMPLETED DATE/TIME: 01/01/2018 2:57 pm REASON FOR STUDY: fall, head injury, on blood thinners COMPARISON: CT brain 12/03/2016, 12/17/2015, 01/26/2015 TECHNIQUE: Axial images acquired through the brain without intravenous contrast. Images reviewed wi th bone, brain and subdural windows. Additional sagittal and coronal reconstructions were generated. Images stored on PACS. All CT scanners at this facility use dose modulation, iterative reconstruction, and/or weight based d osing when appropriate to reduce radiation dose to as low as reasonably achievable (ALARA). [facility]: Dose Right [facility]: CareDose [facility]: Dose Right [facility]: Teradose 4D [facility]: Poshly RADIATION DOSE: CT Rad equipment meets quality standard of care and radiation dose reduction techniq ues were employed. CTDIvol: 53.2 mGy. DLP: 1017 mGy-cm. mGy. LIMITATIONS: None. FINDINGS: VENTRICLES: Normal size and contour. CEREBRUM: No masses. No hemorrhage. No midline shift. No evidence for acute infarction. Normal gra y/white matter differentiation. No areas of low density in the white matter. CEREBELLUM: No masses. No hemorrhage. No alteration of density. No evidence for acute infarction. EXTRAAXIAL SPACES: No fluid collections. No masses. ORBITS AND GLOBE: No intra- or extraconal masses. Normal contour of globe without masses. CALVARIUM: No fracture. PARANASAL SINUSES: No fluid or mucosal thickening. SOFT TISSUES: No mass or hematoma. OTHER: No other significant finding. IMPRESSION: NORMAL BRAIN CT WITHOUT CONTRAST. EVIDENCE OF ACUTE STROKE: NO. COMMENT: Quality ID # [id number]: Final reports with documentation of one or more dose reduction techniques (e.g., Automated exposure control, adjustment of the mA and/or kV according to patient size, use of iterative reconstruction technique) TECHNICAL DOCUMENTATION: JOB ID: [id number] [employer]- All Rights Reserved Reading location - IP/workstation name: [email or web address]
--- NOTE | 2018-01-01 15:20 | RADIOLOGY REPORT (SQ) ---
EXAM DESCRIPTION: CT CERVICAL SPINE WITHOUT COMPLETED DATE/TIME: 01/01/2018 2:57 pm REASON FOR STUDY: fall, head injury, on blood thinners COMPARISON: CT cervical spine 12/17/2015, 01/26/2015 TECHNIQUE: Axial images acquired through the cervical spine without intravenous contrast. Images re viewed with lung, soft tissue and bone windows. Reconstructed coronal and sagittal MPR images review ed. Images stored on PACS. All CT scanners at this facility use dose modulation, iterative reconstruction, and/or weight based d osing when appropriate to reduce radiation dose to as low as reasonably achievable (ALARA). [facility]: Dose Right [facility]: CareDose [facility]: Dose Right [facility]: Teradose 4D [facility]: [employer] RADIATION DOSE: CT Rad equipment meets quality standard of care and radiation dose reduction techniq ues were employed. CTDIvol: 10.7 mGy. DLP: 190 mGy-cm. mGy. LIMITATIONS: None. FINDINGS: ALIGNMENT: Anatomic. MINERALIZATION: Normal. VERTEBRAL BODIES: No fractures or dislocation. DISCS: Multilevel disc space narrowing with osteophytes. FACETS, LATERAL MASSES, POSTERIOR ELEMENTS: Facet arthropathy. No fractures. No dislocation. No ac chemehuevi findings. HARDWARE: None in the spine. VISUALIZED RIBS: No fractures. LUNG APICES AND SOFT TISSUES: No significant or acute findings. OTHER: No other significant finding. IMPRESSION: CHRONIC DEGENERATIVE CHANGES. NO ACUTE FINDINGS. TECHNICAL DOCUMENTATION: JOB ID: [id number] Quality ID # [id number]: Final reports with documentation of one or more dose reduction techniques (e.g., Au tomated exposure control, adjustment of the mA and/or kV according to patient size, use of iterative reconstruction technique) 2010 [employer]- All Rights Reserved Reading location - IP/workstation name: [email or web address]
[2018-01-01 16:06] VITALS: BP 127/39
== END 2018-01-01 16:07 | disposition home or self-care (01) ==
LOC: ER 14:19
DX: S00.03XA Contusion of scalp, initial encounter (principal); R51 Headache; W18.39XA Other fall on same level, initial encounter; Y93.89 Activity, other specified; R55 Syncope and collapse; Q82.5 Congenital non-neoplastic nevus; J44.9 Chronic obstructive pulmonary disease, unspecified; I48.91 Unspecified atrial fibrillation; E03.9 Hypothyroidism, unspecified; Z79.899 Other long term (current) drug therapy; Z79.01 Long term (current) use of anticoagulants; Z88.1 Allergy status to other antibiotic agents; Z91.041 Radiographic dye allergy status; Z88.2 Allergy status to sulfonamides
CPT/HCPCS: 99284; 70450; 72125; L0120

== ENCOUNTER 2018-02-11 15:48 | Emergency (ER) | payer MEDICARE ==
--- NOTE | 2018-02-11 16:49 | ER Document Report ---
ED General - General Chief Complaint: Weakness Stated Complaint: SYNCOPE Time Seen by Provider: 02/11/18 16:23 Mode of Arrival: Ambulatory Information source: Patient, Relative, [facility] Records Notes: 82-year-old female with congestive heart failure, atrial fibrillation, COPD, hypothyroidism, coronary artery disease, depression presents after multiple near syncopal episodes just prior to arrival. Daughter and patient state that they were out to lunch when the patient had 5 episodes of feeling like she was going to pass out. She states that she had palpitations and visual changes. The daughter states that she never lost consciousness but nodded her head like she was going to about 5 times. Patient denies any preceding chest pain, shortness of breath. She states that she has otherwise been well. Patient has had multiple previous episodes of falls recently. She was seen in December after a syncopal episode where she struck her head. She is due to see cardiology on February 28. She is on Eliquis for her atrial fibrillation but after reviewing her medical list I see no rate controlling medication. She denies any other changes in her meds. Patient currently complaining a of a mild aching frontal headache. Denies any slurred speech, difficulty with ambulation, weakness. She states she has been eating and drinking normally. TRAVEL OUTSIDE OF THE [place] IN LAST 30 DAYS: No - HPI Onset: Just prior to arrival Onset/Duration: Sudden, Intermittent, Better Quality of pain: Achy Severity: Mild Associated symptoms: Headache. denies: Chest pain, Shortness of breath, Sweating Exacerbated by: Denies Relieved by: Denies Similar symptoms previously: Yes Recently seen / treated by doctor: Yes - 01/01/18 - Related Data Allergies/Adverse Reactions: ceftriaxone sodium [From Rocephin] Allergy (Verified 02/11/18 15:52) ciprofloxacin [From Cipro] Allergy (Verified 02/11/18 15:52) ciprofloxacin HCl [From Cipro] Allergy (Verified 02/11/18 15:52) Iodinated Contrast- Oral and IV Dye [IV Dye, Iodine Containing] Allergy ( Verified 02/11/18 15:52) Sulfa (Sulfonamide Antibiotics) Allergy (Verified 02/11/18 15:52) Past Medical History - General Information source: Patient, [facility] Records - Social History Smoking Status: Never Smoker Frequency of alcohol use: None Drug Abuse: None Lives with: Alone Family History: None Patient has suicidal ideation: No Patient has homicidal ideation: No - Past Medical History Cardiac Medical History: Reports: Hx Atrial Fibrillation, Hx Congestive Heart Failure, Hx Hypercholesterolemia Pulmonary Medical History: Reports: Hx Bronchitis, Hx COPD Endocrine Medical History: Reports: Hx Hypothyroidism Renal/ Medical History: Denies: Hx Peritoneal Dialysis GI Medical History: Reports: Hx Gastroesophageal Reflux Disease Musculoskeletal Medical History: Reports Hx Arthritis Psychiatric Medical History: Reports: Hx Depression Past Surgical History: Reports: Hx Appendectomy, Hx Cholecystectomy, Hx Orthopedic Surgery - left hip/leg, l shoulder 11/08, Hx Tubal Ligation - Immunizations Hx Diphtheria, Pertussis, Tetanus Vaccination: No Hx Pneumococcal Vaccination: 06/25/09 Review of Systems - Review of Systems Notes: REVIEW OF SYSTEMS: CONSTITUTIONAL : Denies fever, chills, or sweats. Denies recent illness. Denies weight loss, recent hospitalizations. EENT: Denies visual changes, eye pain. Denies nasal or sinus congestion or discharge. Denies sore throat, oral lesions, difficulty swallowing. CARDIOVASCULAR: Denies chest pain. Denies lower extremity edema. RESPIRATORY: Denies cough, cold, or chest congestion. Denies shortness of breath, wheezing. GASTROINTESTINAL: Denies abdominal pain or distention. Denies nausea, vomiting , or diarrhea. Denies blood in vomitus, stools, or per rectum. Denies black, tarry stools. Denies constipation. GENITOURINARY: Denies difficulty urinating, painful urination, frequency, blood in urine, or vaginal discharge. MUSCULOSKELETAL: Denies back or neck pain or stiffness. Denies joint pain or swelling. SKIN: Denies rash, lesions or sores. HEMATOLOGIC : Denies easy bruising or bleeding. LYMPHATIC: Denies swollen glands. NEUROLOGICAL: Denies confusion or altered mental status. Denies passing out or loss of consciousness. Denies weakness or paralysis. Denies problems difficulty with ambulation, slurred speech. Denies sensory loss, numbness, or tingling. Denies seizures. PSYCHIATRIC: Denies anxiety or stress. Denies depression, suicidal ideation, or homicidal ideation. Denies visual or auditory hallucinations. Physical Exam - Vital signs Vitals: Temp Pulse Resp BP Pulse Ox 97.9 F 64 24 H 80/59 L 99 02/11/18 16:15 02/11/18 16:15 02/11/18 16:15 02/11/18 16:15 02/11/18 16:15 - Notes Notes: PHYSICAL EXAMINATION: GENERAL: Well-appearing, well-nourished and in no acute distress. HEAD: Atraumatic, normocephalic. EYES: Pupils equal round and reactive to light, extraocular movements intact, conjunctiva are normal. ENT: Nares patent, oropharynx clear without exudates. Moist mucous membranes. NECK: Normal range of motion, supple without lymphadenopathy LUNGS: Breath sounds clear to auscultation bilaterally and equal. No wheezes rales or rhonchi. HEART: Regular rate, irregular rhythm. ABDOMEN: Soft, nontender, nondistended abdomen. No guarding, no rebound. No masses appreciated. Female : deferred Musculoskeletal: Normal range of motion, no pitting or edema. No cyanosis. NEUROLOGICAL: Cranial nerves grossly intact. Normal speech, normal gait. Normal sensory, motor exams. NIH-0 PSYCH: Normal mood, normal affect. SKIN: Warm, Dry, normal turgor, no rashes or lesions noted. Course - Re-evaluation Re-evalutation: 02/12/18 22:33 Laboratory 02/11/18 02/11/18 02/11/18 17:05 17:05 17:05 WBC 3.1 L RBC 4.05 Hgb 12.7 Hct 37.5 MCV 93 MCH 31.3 MCHC 33.8 RDW 14.0 Plt Count 160 Seg Neutrophils % 62.4 Lymphocytes % 25.2 Monocytes % 10.9 Eosinophils % 1.3 Basophils % 0.2 Absolute Neutrophils 1.9 Absolute Lymphocytes 0.8 Absolute Monocytes 0.3 Absolute Eosinophils 0.0 Absolute Basophils 0.0 PT 16.0 H INR 1.22 APTT 35.9 H Sodium 144.4 Potassium 4.5 Chloride 107 Carbon Dioxide 26 Anion Gap 11 BUN 20 Creatinine 0.97 Est GFR ( Amer) > 60 Est GFR (Non-Af Amer) 55 L Glucose 96 Calcium 10.3 H Phosphorus 4.4 Magnesium 1.9 Total Bilirubin 0.8 Direct Bilirubin 0.4 Neonat Total Bilirubin Not Reportable Neonat Direct Bilirubin Not Reportable Neonat Indirect Bili Not Reportable AST 37 H ALT 29 Alkaline Phosphatase 30 L Troponin I NT-Pro-B Natriuret Pep Total Protein 7.1 Albumin 4.1 TSH Urine Color Urine Appearance Urine pH Ur Specific [place] Urine Protein Urine Glucose (UA) Urine Ketones Urine Blood Urine Nitrite Urine Bilirubin Urine Urobilinogen Ur Leukocyte Esterase Urine WBC (Auto) Urine RBC (Auto) Squamous Epi Cells Auto Urine Mucus (Auto) Urine Ascorbic Acid 02/11/18 02/11/18 02/11/18 17:05 17:05 17:24 WBC RBC Hgb Hct MCV MCH MCHC RDW Plt Count Seg Neutrophils % Lymphocytes % Monocytes % Eosinophils % Basophils % Absolute Neutrophils Absolute Lymphocytes Absolute Monocytes Absolute Eosinophils Absolute Basophils PT INR APTT Sodium Potassium Chloride Carbon Dioxide Anion Gap BUN Creatinine Est GFR ( Amer) Est GFR (Non-Af Amer) Glucose Calcium Phosphorus Magnesium Total Bilirubin Direct Bilirubin Neonat Total Bilirubin Neonat Direct Bilirubin Neonat Indirect Bili AST ALT Alkaline Phosphatase Troponin I < 0.012 NT-Pro-B Natriuret Pep 1780 H Total Protein Albumin TSH 2.51 Urine Color YELLOW Urine Appearance CLEAR Urine pH 6.0 Ur Specific [place] 1.011 Urine Protein NEGATIVE Urine Glucose (UA) NEGATIVE Urine Ketones NEGATIVE Urine Blood NEGATIVE Urine Nitrite NEGATIVE Urine Bilirubin NEGATIVE Urine Urobilinogen NEGATIVE Ur Leukocyte Esterase NEGATIVE Urine WBC (Auto) 1 Urine RBC (Auto) 0 Squamous Epi Cells Auto <1 Urine Mucus (Auto) RARE Urine Ascorbic Acid NEGATIVE Head CT 02/11/18 16:42 IMPRESSION: NORMAL BRAIN CT WITHOUT CONTRAST. EVIDENCE OF ACUTE STROKE: NO. Chest X-Ray 02/11/18 19:10 IMPRESSION: CARDIAC ENLARGEMENT WITHOUT FAILURE. 02/12/18 22:34 82-year-old female with congestive heart failure, atrial fibrillation, COPD, hypothyroidism, coronary artery disease, depression presents after multiple near syncopal episodes just prior to arrival. Daughter and patient state that they were out to lunch when the patient had 5 episodes of feeling like she was going to pass out. She states that she had palpitations and visual changes. The daughter states that she never lost consciousness but nodded her head like she was going to about 5 times. Patient denies any preceding chest pain, shortness of breath. She states that she has otherwise been well. Patient has had multiple previous episodes of falls recently. She was seen in December after a syncopal episode where she struck her head. She is due to see cardiology on February 28. She is on Eliquis for her atrial fibrillation. Upon arrival patient was placed on monitoring coordinator and vital signs were reviewed. Patient initially mildly hypertensive and bradycardic with a heart rate of 55. Upon my exam she has no complaints except for a mild frontal headache. Previous medical records reviewed. Patient has had similar symptoms and was seen after a syncopal episode a few weeks ago. Patient has a normal physical and neurologic exam. She is requesting a CT of the head which was performed and showed no acute process. Cardiac enzymes were within normal limits. Patient does have a mildly elevated BNP with chest x-ray that shows cardiac enlargement without failure. She has no peripheral edema or shortness of breath. Patient was monitored in the emergency department 4 hours without recurrence of symptoms. I ambulated her myself and she had no difficulty. It is hard to say whether patient is having paroxysmal atrial fibrillation with RVR which is causing her to feel dizzy. I have low suspicion for stroke. Patient was advised that she should not drive until seen by cardiology. She was advised that she should be staying with her daughter and not home alone which both her and her daughter are in agreement with. She was encouraged to drink plenty of fluids and consider using a walker to prevent future falls.. Patient provided the opportunity to ask questions, and express concerns. Discharge instructions discussed. Patient is agreeable with discharge home. Return indications explained and discussed with the patient who displays understanding. Patient encouraged to return to the emergency department immediately with any concerns. 02/12/18 22:34 02/12/18 22:35 - Vital Signs Vital signs: Temp Pulse Resp BP Pulse Ox 98.9 F 55 L 20 150/63 H 100 02/11/18 20:04 02/11/18 16:52 02/11/18 20:04 02/11/18 20:04 02/11/18 20:04 - Laboratory Result Diagrams: 02/11/18 17:05 02/11/18 17:05 Laboratory results interpreted by me: 02/11/18 02/11/18 02/11/18 17:05 17:05 17:05 WBC 3.1 L PT 16.0 H APTT 35.9 H Est GFR (Non-Af Amer) 55 L Calcium 10.3 H AST 37 H Alkaline Phosphatase 30 L NT-Pro-B Natriuret Pep 02/11/18 17:05 WBC PT APTT Est GFR (Non-Af Amer) Calcium AST Alkaline Phosphatase NT-Pro-B Natriuret Pep 1780 H - Diagnostic Test Radiology reviewed: Image reviewed, Reports reviewed - EKG Interpretation by Me Rate: Normal Rhythm: A.Fib When compared to previous EKG there are: No significant change Discharge - Discharge Clinical Impression: Near syncope, Bradycardia, Cardiomegaly Atrial fibrillation Qualifiers: Atrial fibrillation type: chronic Qualified Code(s): I48.2 - Chronic atrial fibrillation Condition: Good Disposition: HOME, SELF-CARE Instructions: Dizziness ([facility]), Near Syncopal Episode ([facility]) Additional Instructions: Do not drive your car until evaluated by cardiology. Forms: Elevated Blood Pressure ED NIH Stroke Scale - NIH Stroke Scale *: 1. NIH scale should be completed with appropriate accompanying assessment tools. *: 2. The NIH should reflect what the patient is capable of doing and should not be coached by the clinician. 1a. Level of Consciousness: 0=Alert;keenly responsive -: 1=Drowsy -: 2=Obtunded -: 3=Coma/unresponsive or reflex to noxious stimuli. 1a. Responses: 0 1b. Orientation Questions: a. What month is it? -: b. How old are you? -: 0=Answers both questions correctly. -: 1=Answers one question correctly or patient is intubated or has orotracheal trauma. -: 2=Answers neither question correctly. 1b. Responses: 0 1c. Response to commands: a. Open and close eyes? -: b. Regional Sales Director and release hand? -: Credit is given despite weakness. Demonstration of task is permitted. Substitute command if hands cannot be used. -: 0=Performs both tasks correctly -: 1=Performs one task correctly -: 2=Performs neither task correctly 1c. Responses: 0 2. Gaze: Establish eye contact and instruct patient to "Follow my finger" -: 0=Normal -: 1=Partial gaze palsy. Gaze is abnormal in one or both eyes, but where forced deviation or total gaze paresis is not present. -: 2=Forced deviation or total gaze paresis. 2. Responses: 0 3. Visual Reveles: Sees fingers in all four quadrants. -: 0=No visual loss. -: 1=Partial hemianopsia. -: 2=Complete hemianopsia. -: 3=Bilateral hemianopsia (including Cortical blindness) 3. Responses: 0 4. Facial Movement: Instruct patient to: -: a. Show me your teeth -: b. Raise your eyebrows -: c. Close your eyes -: d. Smile -: 0=Normal symmetrical movement -: 1=Minor paralysis (flattened nasolabial fold, asymmetry on smiling). -: 2=Partial paralysis (total or near total paralysis of lower face). -: 3=Complete paralysis of upper and lower face 4. Responses: 0 5. Motor functions (left arm): Alternate sides and extend each arm with palms down (90 degrees if sitting or 45 degrees for supine). -: 0=No drift;limb holds for full 10 seconds. -: 1=Drift; limb holds but drifts down before full 10 seconds, but does not hit bed. -: 2=Some effort against gravity; limb cannot get to or maintain position. -: 3=No effort against gravity; limb falls. -: 4=No movement. -: UN=Amputation, joint fusion, explain in comments. 5. Responses (left arm): 0 5. Motor Functions (right arm): Alternate sides and extend each arm with palms down (90 degrees if sitting or 45 degrees for supine). -: 0=No drift;limb holds for full 10 seconds. -: 1=Drift; limb holds but drifts down before full 10 seconds, but does not hit bed. -: 2=Some effort against gravity; limb cannot get to or maintain position. -: 3=No effort against gravity; limb falls. -: 4=No movement. -: UN=Amputation, joint fusion, explain in comments. 5. Responses (right arm): 0 6. Motor Functions (left leg): With patient lying supine, alternate sides and extend each leg (30 degrees always while supine). -: 0=No drift, leg holds position for full 5 seconds -: 1=Drift; leg falls before full 5 seconds but does not hit bed. -: 2=Some effort against gravity, leg falls to bed but some effort against gravity. -: 3=No effort against gravity, leg falls to bed immediately. -: 4=No movement. -: UN=Amputation, joint fusion; explain in comments. 6. Responses (left leg): 0 6. Motor Functions (right leg): With patient lying supine, alternate sides and extend each leg (30 degrees always while supine). -: 0=No drift, leg holds position for full 5 seconds -: 1=Drift; leg falls before full 5 seconds but does not hit bed. -: 2=Some effort against gravity, leg falls to bed but some effort against gravity. -: 3=No effort against gravity, leg falls to bed immediately. -: 4=No movement. -: UN=Amputation, joint fusion; explain in comments. 6. Responses (right leg): 0 7. Limb Ataxia: With eyes open instruct patient to: -: a. "Touch your finger to your nose". -: b. "Touch your heel to your bellamy" -: 0=Absent -: 1=Present in one limb. -: 2=Present in two limbs. -: UN=Amputation or joint fusion; explain in comments. 7. Responses: 0 8. Sensory: Test sensation using pinprick or noxious stimuli. Test as many body parts as possible. -: 0=Normal;no sensory loss -: 1=Mile to moderate sensory loss (patient feels pin prick but is less sharp on affected side). -: 2=Severe or total sensory loss. 8. Responses: 0 9. Best Language: Instruct patient to: -: a. "Describe what you see in this picture." -: b. "Name the items in this picture." -: c. "Read these sentences." -: 0=No aphasia, normal -: 1=Mild to moderate aphasia. -: 2=Severe aphasia -: 3=Mute, global aphasia, no usable speech or auditory comprehension. 9. Responses: 0 10. Articulation, Dysarthia: Instruct patient to: -: "Read these words" or "Repeat these words" -: 0=Normal -: 1=Mild to moderate; patient may slur some words but can be understood without difficulty. -: 2=Severe; patients speech so slurred as to be unintelligible in the absence of dysphasia. -: UN=Intubated or other physical barrier, explain in comments. 10. Responses: 0 11. Extinction or inattention: 0=No abnormality -: 1= Visual, tactile, auditory, spatial, or personal inattention or extinction to bilateral simulation in one or the sensory modalities. -: 2=Profound david-inattention or david-inattention to more than one modality; does not recognize own hand. 11. Responses: 0 Total Score: 0
[2018-02-11 17:24] LABS: ABSOLUTE LYMPHOCYTES (AUTO) 0.8 10^3/uL (0.5-4.7); ABSOLUTE MONOCYTES (AUTO) 0.3 10^3/uL (0.1-1.4); ABSOLUTE NEUT (AUTO) 1.9 10^3/uL (1.7-8.2); BASOPHILS % (AUTO) 0.2 % (0-2); EOSINOPHILS % (AUTO) 1.3 % (0-6); HEMATOCRIT 37.5 % (36.0-47.0); HEMOGLOBIN 12.7 g/dL (12.0-15.5); LYMPHOCYTES % (AUTO) 25.2 % (13-45); MEAN CORPUSCULAR HEMOGLOBIN 31.3 pg (27.0-33.4); MEAN CORPUSCULAR HGB CONC 33.8 g/dL (32.0-36.0); MEAN CORPUSCULAR VOLUME 93 fl (80-97); MONOCYTES % (AUTO) 10.9 % (3-13); PLATELET COUNT 160 10^3/uL (150-450); RED BLOOD COUNT 4.05 10^6/uL (3.72-5.28); SEGMENTED NEUTROPHILS % (AUTO) 62.4 % (42-78); TOTAL CELLS COUNTED % (AUTO) 100 %; WHITE BLOOD COUNT 3.1 10^3/uL (4.0-10.5)
--- NOTE | 2018-02-11 17:35 | RADIOLOGY REPORT (SQ) ---
EXAM DESCRIPTION: CT HEAD WITHOUT COMPLETED DATE/TIME: 02/11/2018 5:20 pm REASON FOR STUDY: headache fall last week on eliquis COMPARISON: 01/01/2018 TECHNIQUE: Axial images acquired through the brain without intravenous contrast. Images reviewed wi th bone, brain and subdural windows. Additional sagittal and coronal reconstructions were generated. Images stored on PACS. All CT scanners at this facility use dose modulation, iterative reconstruction, and/or weight based d osing when appropriate to reduce radiation dose to as low as reasonably achievable (ALARA). [facility]: Dose Right [facility]: CareDose [facility]: Dose Right [facility]: Teradose 4D [facility]: [employer] RADIATION DOSE: CT Rad equipment meets quality standard of care and radiation dose reduction techniq ues were employed. CTDIvol: 53.2 mGy. DLP: 937 mGy-cm. mGy. LIMITATIONS: None. FINDINGS: VENTRICLES: Normal size and contour. CEREBRUM: No masses. No hemorrhage. No midline shift. No evidence for acute infarction. Normal gra y/white matter differentiation. No areas of low density in the white matter. CEREBELLUM: No masses. No hemorrhage. No alteration of density. No evidence for acute infarction. EXTRAAXIAL SPACES: No fluid collections. No masses. ORBITS AND GLOBE: No intra- or extraconal masses. Normal contour of globe without masses. CALVARIUM: No fracture. PARANASAL SINUSES: No fluid or mucosal thickening. SOFT TISSUES: No mass or hematoma. OTHER: No other significant finding. IMPRESSION: NORMAL BRAIN CT WITHOUT CONTRAST. EVIDENCE OF ACUTE STROKE: NO. COMMENT: Quality ID # [id number]: Final reports with documentation of one or more dose reduction techniques (e.g., Automated exposure control, adjustment of the mA and/or kV according to patient size, use of iterative reconstruction technique) TECHNICAL DOCUMENTATION: JOB ID: [id number]- All Rights Reserved Reading location - IP/workstation name: [email or web address]
[2018-02-11 17:39] LABS: INTERNATIONAL RATION (INR) 1.22
[2018-02-11 17:40] LABS: PARTIAL THROMBOPLASTIN TIME 35.9 SEC (23.5-35.8)
[2018-02-11 17:41] LABS: ALANINE AMINOTRANSFERASE 29 U/L (9-52); ALBUMIN 4.1 g/dL (3.5-5.0); ALKALINE PHOSPHATASE 30 U/L (38-126); ANION GAP 11 (5-19); ASPARTATE AMINO TRANSFERASE 37 U/L (14-36); BILIRUBIN,DIRECT 0.4 mg/dL (0.0-0.4); BILIRUBIN,TOTAL 0.8 mg/dL (0.2-1.3); BLOOD UREA NITROGEN 20 mg/dL (7-20); CALCIUM 10.3 mg/dL (8.4-10.2); CARBON DIOXIDE 26 mmol/L (22-30); CHLORIDE 107 mmol/L (98-107); GLUCOSE 96 mg/dL (75-110); PHOSPHORUS 4.4 mg/dL (2.5-4.5); POTASSIUM 4.5 mmol/L (3.6-5.0); SODIUM 144.4 mmol/L (137-145); TOTAL PROTEIN 7.1 g/dL (6.3-8.2)
[2018-02-11 17:47] LABS: APPEARANCE,URINE CLEAR; BILIRUBIN,URINE NEGATIVE (NEGATIVE); COLOR,URINE YELLOW; GLUCOSE, URINE NEGATIVE (NEGATIVE); KETONES,URINE NEGATIVE (NEGATIVE); LEUKOCYTE ESTERASE,URINE NEGATIVE (NEGATIVE); NITRITE,URINE NEGATIVE (NEGATIVE); PROTEIN,URINE NEGATIVE (NEGATIVE); URINE SPECIFIC GRAVITY 1.011; UROBILINOGEN,URINE NEGATIVE mg/dL (<2.0)
[2018-02-11 17:51] LABS: NT PRO BNP 1780 pg/mL (<450)
[2018-02-11 17:55] LABS: TROPONIN I < 0.012 ng/mL
--- NOTE | 2018-02-11 19:38 | RADIOLOGY REPORT (SQ) ---
EXAM DESCRIPTION: CHEST SINGLE VIEW COMPLETED DATE/TIME: 02/11/2018 7:30 pm REASON FOR STUDY: near syncope COMPARISON: None. NUMBER OF VIEWS: Two view. TECHNIQUE: Frontal and lateral radiographic views of the chest acquired. LIMITATIONS: None. FINDINGS: LUNGS AND PLEURA: No opacities, masses or pneumothorax. No pleural effusion. MEDIASTINUM AND HILAR STRUCTURES: No masses. No contour abnormalities. HEART AND VASCULAR STRUCTURES: Heart enlarged without failure. Aorta normal for age. BONES: No acute findings. HARDWARE: None in the chest. OTHER: No other significant finding. IMPRESSION: CARDIAC ENLARGEMENT WITHOUT FAILURE. TECHNICAL DOCUMENTATION: JOB ID: [id number] 2 Minutes- All Rights Reserved Reading location - IP/workstation name: [email or web address]
[2018-02-11 20:07] VITALS: BP 150/63
--- NOTE | 2018-02-11 22:51 | EKG REPORT ---
SEVERITY:- ABNORMAL ECG - ATRIAL FIBRILLATION IVCD, CONSIDER ATYPICAL RBBB PROBABLE ANTEROSEPTAL INFARCT, AGE INDETERM : Confirmed by: Lanny Connolly 11-Feb-2018 22:51:17
== END 2018-02-11 20:17 | disposition home or self-care (01) ==
LOC: ER 15:48
DX: R55 Syncope and collapse (principal); R00.1 Bradycardia, unspecified; I51.7 Cardiomegaly; I48.2 Chronic atrial fibrillation; Z79.01 Long term (current) use of anticoagulants; R51 Headache; J44.9 Chronic obstructive pulmonary disease, unspecified; I25.10 Atherosclerotic heart disease of native coronary artery without angina pectoris; Z91.81 History of falling; Z88.1 Allergy status to other antibiotic agents; Z91.041 Radiographic dye allergy status; Z88.2 Allergy status to sulfonamides
CPT/HCPCS: 36415; 70450; 71045; 80053; 81001; 83735; 83880; 84100; 84443; 84484; 85025; 85610; 85730; 93005; 93010; 99285

== ENCOUNTER 2018-03-12 14:58 | Emergency (ER) | payer MEDICARE, OTHER ==
[2018-03-12 15:43] VITALS: BP 139/78
--- NOTE | 2018-03-12 17:14 | ER Document Report ---
ED Skin Rash/Insect Bite/Abscs - General Chief Complaint: Skin Problem Stated Complaint: REDNESS AT SURGERY SITE/PACEMAKER Time Seen by Provider: 03/12/18 17:08 Mode of Arrival: Ambulatory Information source: Patient Notes: Chief complaint: Left chest wall wound History of complain:( obtained from----patient) 82 years old female had a pacemaker placed a month ago, over the site she was Dermabond and for the surgical scar, underneath the scar rather underneath the Dermabond she developed redness and infection and discharged therefore present to the ED. No fever chills or other constitutional symptoms. Onset: As above Duration: Gradual Severity: Mild to moderate Quality: Dull Context: As described above Exacerbating factor and relieving factors: None REVIEW OF SYSTEMS: CONSTITUTIONAL : Denies fever, chills, or sweats. Denies recent illness. EENT: Denies eye, ear, throat, or mouth pain or symptoms. Denies nasal or sinus congestion or discharge. Denies throat, tongue, or mouth swelling or difficulty swallowing. CARDIOVASCULAR: Denies chest pain. Denies palpitations or racing or irregular heart beat. Denies ankle edema. RESPIRATORY: Denies cough, cold, or chest congestion. Denies shortness of breath, difficulty breathing, or wheezing. GASTROINTESTINAL: Denies distention. Denies nausea, vomiting, or diarrhea. Denies blood in vomitus, stools, or per rectum. Denies black, tarry stools. Denies constipation. GENITOURINARY: Denies difficulty urinating, painful urination, burning, frequency, blood in urine, or discharge. FEMALE GENITOURINARY: Denies vaginal bleeding, heavy or abnormal periods, irregular periods. Denies vaginal discharge or odor. MUSCULOSKELETAL: Denies back or neck pain or stiffness. Denies joint pain or swelling. SKIN: Elderly female not seems to be in any acute distress HEMATOLOGIC : Denies easy bruising or bleeding. LYMPHATIC: Denies swollen, enlarged glands. NEUROLOGICAL: Denies confusion or altered mental status. Denies passing out or loss of consciousness. Denies dizziness or lightheadedness. Denies headache. Denies weakness or paralysis or loss of use of either side. Denies problems with gait or speech. Denies sensory loss, numbness, or tingling. Denies seizures. PSYCHIATRIC: Denies anxiety or stress. Denies depression, suicidal ideation, or homicidal ideation. ALL OTHER SYSTEMS REVIEWED AND NEGATIVE. PHYSICAL EXAMINATION: GENERAL: Well-appearing, well-nourished and in no acute distress. HEAD: Atraumatic, normocephalic. EYES: Pupils equal round and reactive to light, extraocular movements intact, conjunctiva are normal. ENT: Nares patent, oropharynx clear without exudates. Moist mucous membranes. NECK: Normal range of motion, supple without lymphadenopathy LUNGS: Breath sounds clear to auscultation bilaterally and equal. No wheezes rales or rhonchi. HEART: Regular rate and rhythm without murmurs ABDOMEN: Soft, nontender, nondistended abdomen. No guarding, no rebound. No masses appreciated. Examination of genitals-deferred NEUROLOGICAL: Cranial nerves grossly intact. Normal speech, normal gait. Normal sensory, motor exams PSYCH: Normal mood, normal affect. SKIN: Skin over the left chest wall over the pacemaker, shows erythema with slight purulent discharge noted but no induration or underlying mass. Dictation was performed using [employer] voice recognition software TRAVEL OUTSIDE OF THE [place] IN LAST 30 DAYS: No - HPI Notes: Dictated - Related Data Allergies/Adverse Reactions: ceftriaxone sodium [From Rocephin] Allergy (Verified 03/12/18 14:59) ciprofloxacin [From Cipro] Allergy (Verified 03/12/18 14:59) ciprofloxacin HCl [From Cipro] Allergy (Verified 03/12/18 14:59) Iodinated Contrast- Oral and IV Dye [IV Dye, Iodine Containing] Allergy ( Verified 03/12/18 14:59) Sulfa (Sulfonamide Antibiotics) Allergy (Verified 03/12/18 14:59) Past Medical History - Social History Smoking Status: Never Smoker Chew tobacco use (# tins/day): No Frequency of alcohol use: None Drug Abuse: None Lives with: Family Family History: None, Reviewed & Not Pertinent Patient has suicidal ideation: No Patient has homicidal ideation: No - Past Medical History Cardiac Medical History: Reports: Hx Atrial Fibrillation, Hx Congestive Heart Failure, Hx Hypercholesterolemia Pulmonary Medical History: Reports: Hx Bronchitis, Hx COPD Endocrine Medical History: Reports: Hx Hypothyroidism Renal/ Medical History: Denies: Hx Peritoneal Dialysis GI Medical History: Reports: Hx Gastroesophageal Reflux Disease Musculoskeletal Medical History: Reports Hx Arthritis Psychiatric Medical History: Reports: Hx Depression Past Surgical History: Reports: Hx Appendectomy, Hx Cholecystectomy, Hx Orthopedic Surgery - left hip/leg, l shoulder 11/08, Hx Tubal Ligation - Immunizations Hx Diphtheria, Pertussis, Tetanus Vaccination: No Hx Pneumococcal Vaccination: 06/25/09 Review of Systems - Review of Systems Notes: Dictated Physical Exam - Vital signs Vitals: Temp Pulse Resp BP Pulse Ox 97.3 F 86 20 139/78 H 98 03/12/18 15:38 03/12/18 15:38 03/12/18 15:38 03/12/18 15:38 03/12/18 15:38 - Notes Notes: Dictated Course - Re-evaluation Re-evalutation: 03/12/18 17:17 Wound was cleaned and redressed - Vital Signs Vital signs: Temp Pulse Resp BP Pulse Ox 97.3 F 86 20 139/78 H 98 03/12/18 15:38 03/12/18 15:38 03/12/18 15:38 03/12/18 15:38 03/12/18 15:38 Discharge - Discharge Clinical Impression: Skin infection Condition: Fair Disposition: HOME, SELF-CARE Instructions: Wound Infection ([facility]) Prescriptions: Clindamycin HCl 300 mg PO TID #30 capsule
== END 2018-03-12 17:12 | disposition home or self-care (01) ==
LOC: ER 14:58
DX: B99.9 Unspecified infectious disease (principal); J44.9 Chronic obstructive pulmonary disease, unspecified; Z95.0 Presence of cardiac pacemaker; Z88.1 Allergy status to other antibiotic agents; Z91.041 Radiographic dye allergy status; Z88.2 Allergy status to sulfonamides
CPT/HCPCS: 99283

== ENCOUNTER 2019-02-18 15:47 | Observation (INO) | payer MEDICARE, OTHER ==
--- NOTE | 2019-02-18 16:27 | RADIOLOGY REPORT (SQ) ---
EXAM DESCRIPTION: CHEST 2 VIEWS COMPLETED DATE/TIME: 02/18/2019 4:16 pm REASON FOR STUDY: Difficulty Breathing COMPARISON: 12/17/2015 EXAM PARAMETERS: NUMBER OF VIEWS: two views TECHNIQUE: Digital Frontal and Lateral radiographic views of the chest acquired. RADIATION DOSE: NA LIMITATIONS: none FINDINGS: LUNGS AND PLEURA: Emphysematous change with hyperinflation flattening AP diaphragm. Small bilateral pleural effusions. No pneumothorax. Minimal bibasilar opacities, likely atelectasis. MEDIASTINUM AND HILAR STRUCTURES: No masses or contour abnormalities. HEART AND VASCULAR STRUCTURES: Enlarged cardiac silhouette, stable. Aortic atherosclerosis. BONES: Decreased mineralization. No acute findings. HARDWARE: New single lead left-sided cardiac pacer with tip over right ventricle. OTHER: No other significant finding. IMPRESSION: Small bilateral pleural effusions with minimal bibasilar opacities, likely atelectasis. Stable enlarged cardiac silhouette. TECHNICAL DOCUMENTATION: JOB ID: [id number] [employer]- All Rights Reserved Reading location - IP/workstation name: [email or web address]
--- NOTE | 2019-02-18 16:57 | ER Document Report ---
ED Medical Screen (RME) - General Chief Complaint: Breathing Difficulty Stated Complaint: CHEST PAIN Time Seen by Provider: 02/18/19 16:49 Mode of Arrival: Wheelchair Information source: Patient Notes: This 83-year-old female presents today with complaints of shortness of breath chest pain. Reports she had a pacemaker placed last January by Dr. Howard in [place]. She reports they read the pacemaker today and told her she had fluid in her lungs. Patient reports she is been coughing since Sunday. Denies fever vomiting diarrhea. Reports she has been really shortness of breath and has some chest pain mid sternal area. Patient is very winded with conversation. O2 sat 95% on room air. Patient is on Eliquis. I have greeted and performed a rapid initial assessment of this patient. A comprehensive ED assessment and evaluation of the patient, analysis of test results and completion of the medical decision making process will be conducted by additional ED providers. Dictation of this chart was performed using voice recognition software; therefore, there may be some unintended grammatical errors. TRAVEL OUTSIDE OF THE [place] IN LAST 30 DAYS: No - Related Data Allergies/Adverse Reactions: ceftriaxone sodium [From Rocephin] Allergy (Verified 02/18/19 15:54) ciprofloxacin [From Cipro] Allergy (Verified 02/18/19 15:54) ciprofloxacin HCl [From Cipro] Allergy (Verified 02/18/19 15:54) Iodinated Contrast Media [IV Dye, Iodine Containing] Allergy (Verified 02/18/19 15:54) Sulfa (Sulfonamide Antibiotics) Allergy (Verified 02/18/19 15:54) Past Medical History - Past Medical History Cardiac Medical History: Reports: Hx Atrial Fibrillation, Hx Congestive Heart Failure, Hx Hypercholesterolemia Pulmonary Medical History: Reports: Hx Bronchitis, Hx COPD Endocrine Medical History: Reports: Hx Hypothyroidism Renal/ Medical History: Denies: Hx Peritoneal Dialysis GI Medical History: Reports: Hx Gastroesophageal Reflux Disease Musculoskeltal Medical History: Reports Hx Arthritis Psychiatric Medical History: Reports: Hx Depression Past Surgical History: Reports: Hx Appendectomy, Hx Cholecystectomy, Hx Orthopedic Surgery - left hip/leg, l shoulder 11/08, Hx Tubal Ligation - Immunizations Hx Diphtheria, Pertussis, Tetanus Vaccination: No Physical Exam - Vital signs Vitals: Temp Pulse Resp BP Pulse Ox 97.5 F 71 18 140/49 H 95 02/18/19 16:03 08/27/19 16:03 02/18/19 16:03 02/18/19 16:03 02/18/19 16:03 Course - Vital Signs Vital signs: Temp Pulse Resp BP Pulse Ox 97.5 F 71 18 140/49 H 95 02/18/19 16:03 02/18/19 16:03 02/18/19 16:03 02/18/19 16:03 02/18/19 16:03
[2019-02-18 18:00] LABS: ABSOLUTE EOSINOPHILS # (AUTO) 0.1 10^3/uL (0.0-0.6); ABSOLUTE LYMPHOCYTES (AUTO) 0.7 10^3/uL (0.5-4.7); ABSOLUTE MONOCYTES (AUTO) 0.4 10^3/uL (0.1-1.4); BASOPHILS % (AUTO) 0.2 % (0-2); HEMATOCRIT 35.7 % (36.0-47.0); HEMOGLOBIN 11.9 g/dL (12.0-15.5); MEAN CORPUSCULAR HEMOGLOBIN 30.5 pg (27.0-33.4); MONOCYTES % (AUTO) 8.9 % (3-13); TOTAL CELLS COUNTED % (AUTO) 100 %
[2019-02-18 18:06] LABS: INTERNATIONAL RATION (INR) 1.21; PROTHROMBIN TIME 15.4 SEC (11.4-15.4)
[2019-02-18 18:07] LABS: PARTIAL THROMBOPLASTIN TIME 30.9 SEC (23.5-35.8)
[2019-02-18 18:08] LABS: APPEARANCE,URINE CLEAR; BILIRUBIN,URINE NEGATIVE (NEGATIVE); COLOR,URINE YELLOW; GLUCOSE, URINE NEGATIVE (NEGATIVE); KETONES,URINE NEGATIVE (NEGATIVE); LEUKOCYTE ESTERASE,URINE SMALL (NEGATIVE); NITRITE,URINE NEGATIVE (NEGATIVE); PROTEIN,URINE NEGATIVE (NEGATIVE); URINE SPECIFIC GRAVITY 1.014; UROBILINOGEN,URINE NEGATIVE mg/dL (<2.0)
[2019-02-18 18:09] LABS: ABSOLUTE NEUT (AUTO) 3.3 10^3/uL (1.7-8.2); EOSINOPHILS % (AUTO) 1.4 % (0-6); LYMPHOCYTES % (AUTO) 16.5 % (13-45); MEAN CORPUSCULAR HGB CONC 33.5 g/dL (32.0-36.0); MEAN CORPUSCULAR VOLUME 91 fl (80-97); PLATELET COUNT 143 10^3/uL (150-450); RED BLOOD COUNT 3.92 10^6/uL (3.72-5.28); RED CELL DISTRIBUTION WIDTH 13.8 % (11.5-14.0); WHITE BLOOD COUNT 4.5 10^3/uL (4.0-10.5)
[2019-02-18 18:18] LABS: ALBUMIN 4.3 g/dL (3.5-5.0); ALKALINE PHOSPHATASE 62 U/L (38-126); ANION GAP 9 (5-19); ASPARTATE AMINO TRANSFERASE 42 U/L (14-36); BILIRUBIN,DIRECT 0.4 mg/dL (0.0-0.4); BILIRUBIN,TOTAL 0.9 mg/dL (0.2-1.3); BLOOD UREA NITROGEN 15 mg/dL (7-20); CALCIUM 10.2 mg/dL (8.4-10.2); CARBON DIOXIDE 27 mmol/L (22-30); CHLORIDE 107 mmol/L (98-107); CREATINE KINASE 90 U/L (30-135); GLUCOSE 114 mg/dL (75-110); POTASSIUM 4.2 mmol/L (3.6-5.0); TOTAL PROTEIN 7.2 g/dL (6.3-8.2)
--- NOTE | 2019-02-18 19:00 | EKG REPORT ---
SEVERITY:- ABNORMAL ECG - VENTRICULAR-PACED COMPLEXES NONSPECIFIC IVCD WITH LAD : Confirmed by: Damián Roger MD 18-Feb-2019 18:59:52
[2019-02-18] MEDS ORDERED: FUROSEMIDE INJ/PF 20 MG/2 ML SDV IV ONE (19:56)
[2019-02-18] MEDS ORDERED: CLONAZEPAM 1 MG TABLET PO PRN (20:05)
[2019-02-18] MEDS ORDERED: ACETAMINOPHEN 325 MG TABLET PO PRN (20:05)
[2019-02-18] MEDS ORDERED: MAG HYDROX/AL HYDROX/SIMETH SUSP 30 ML UDCUP PO PRN (20:05)
[2019-02-18] MEDS ORDERED: IPRATROPIUM/ALBUTEROL 0.5-2.5 MG/3 ML AMPUL NEB PRN (20:05)
--- NOTE | 2019-02-18 20:11 | ER Document Report ---
ED General - General Chief Complaint: Breathing Difficulty Stated Complaint: CHEST PAIN Time Seen by Provider: 02/18/19 16:49 Mode of Arrival: Wheelchair Information source: Patient TRAVEL OUTSIDE OF THE [place] IN LAST 30 DAYS: No - HPI Notes: Patient states she has had several days now shortness of breath and chest pressure. Chest pressure is mainly left-sided. She denies being under stress. She denies any recent cardiac work-up. She states she did have a heart catheterization about 15 years ago that was normal. She states she has been feeling short of breath as well. She states that the symptoms are worse with exertion and better with rest. They are moderate. They's appear to be constant. No significant radiation of the chest pressure. She has no nausea. She has no significant cough or cold symptoms. She states she has been diagnos ed with congestive heart failure but she is not currently on a water pill. - Related Data Allergies/Adverse Reactions: ceftriaxone sodium [From Rocephin] Allergy (Verified 02/18/19 15:54) ciprofloxacin [From Cipro] Allergy (Verified 02/18/19 15:54) ciprofloxacin HCl [From Cipro] Allergy (Verified 02/18/19 15:54) Iodinated Contrast Media [IV Dye, Iodine Containing] Allergy (Verified 02/18/19 15:54) Sulfa (Sulfonamide Antibiotics) Allergy (Verified 02/18/19 15:54) Past Medical History - General Information source: Patient - Social History Smoking Status: Never Smoker Frequency of alcohol use: None Drug Abuse: None Family History: None, Reviewed & Not Pertinent Patient has suicidal ideation: No Patient has homicidal ideation: No - Past Medical History Cardiac Medical History: Reports: Hx Atrial Fibrillation, Hx Congestive Heart Failure, Hx Hypercholesterolemia Pulmonary Medical History: Reports: Hx Bronchitis, Hx COPD Endocrine Medical History: Reports: Hx Hypothyroidism Renal/ Medical History: Denies: Hx Peritoneal Dialysis GI Medical History: Reports: Hx Gastroesophageal Reflux Disease Musculoskeletal Medical History: Reports Hx Arthritis Psychiatric Medical History: Reports: Hx Depression Past Surgical History: Reports: Hx Appendectomy, Hx Cholecystectomy, Hx Orthopedic Surgery - left hip/leg, l shoulder 11/08, Hx Tubal Ligation - Immunizations Hx Diphtheria, Pertussis, Tetanus Vaccination: No Hx Pneumococcal Vaccination: 06/25/09 Review of Systems - Review of Systems Constitutional: Malaise, Weakness. denies: Chills, Fever Cardiovascular: Chest pain, Dyspnea Respiratory: Short of breath. denies: Sputum Gastrointestinal: denies: Diarrhea, Vomiting -: Yes All other systems reviewed and negative Physical Exam - Vital signs Vitals: Temp Pulse Resp BP Pulse Ox 97.5 F 71 18 140/49 H 95 02/18/19 16:03 02/18/19 16:03 02/18/19 16:03 02/18/19 16:03 02/18/19 16:03 Interpretation: Normal - General General appearance: Appears well, Alert - HEENT Head: Normocephalic, Atraumatic Eyes: Normal Pupils: PERRL - Respiratory Respiratory status: No respiratory distress Chest status: Nontender Breath sounds: Decreased air movement - Bilateral Chest palpation: Normal - Cardiovascular Rhythm: Regular Heart sounds: Normal auscultation Murmur: No - Abdominal Inspection: Normal Distension: No distension Bowel sounds: Normal Tenderness: Nontender Organomegaly: No organomegaly - Back Back: Normal, Nontender - Extremities General upper extremity: Normal inspection, Nontender, Normal color, Normal ROM, Normal temperature General lower extremity: Normal inspection, Nontender, Normal color, Normal ROM, Normal temperature, Normal weight bearing. No: Ayo's sign - Neurological Neuro grossly intact: Yes Cognition: Normal Orientation: AAOx4 Johanny Coma Scale Eye Opening: Spontaneous Johanny Coma Scale Verbal: Oriented [place] Coma Scale Motor: Obeys Commands [place] Coma Scale Total: 15 Speech: Normal Motor strength normal: LUE, RUE, LLE, RLE Sensory: Normal - Psychological Associated symptoms: Normal affect, Normal mood - Skin Skin Temperature: Warm Skin Moisture: Dry Skin Color: Normal Course - Re-evaluation Re-evalutation: 02/18/19 20:08 Patient reevaluated at this time. She has unremarkable work-up here in the emergency department except for some mild edema on x-ray. Her exam is unr emarkable. Her vitals are stable. It is possible that patient has some mild congestive heart failure and will therefore be treated with Lasix. BNP at this time is pending. It is unlikely the patient has a pulmonary embolism however she is allergic to IV contrast dye. I have discussed a VQ scan with the hospitalist who will be admitting the patient. Patient has no evidence of infection. It is also possible given the patient's age this could be her anginal equivalent so serial troponins will be checked. It is also possible that this may be some anxiety as patient is on Klonopin and although she denies stress her family states that she has been under stress. - Vital Signs Vital signs: Temp Pulse Resp BP Pulse Ox 97.5 F 71 22 H 151/59 H 100 02/18/19 16:03 02/18/19 16:03 02/18/19 19:01 02/18/19 19:01 02/18/19 19:01 - Laboratory Result Diagrams: 02/18/19 17:38 02/18/19 17:38 Laboratory results interpreted by me: 02/18/19 02/18/19 02/18/19 17:38 17:38 17:38 Hgb 11.9 L Hct 35.7 L Plt Count 143 L Glucose 114 H AST 42 H Urine Blood SMALL H Ur Leukocyte Esterase SMALL H - Diagnostic Test Radiology reviewed: Image reviewed, Reports reviewed - EKG Interpretation by Me EKG shows normal: abnormal: Sinus rhythm - Ventricular paced complexes Rate: Normal - 70 [place]/QRS: IVCD Voltage: Consistant with LVH Discharge - Discharge Clinical Impression: Dyspnea Qualifiers: Dyspnea type: shortness of breath Qualified Code(s): R06.02 - Shortness of breath; R06.00 - Dyspnea, unspecified; R06.01 - Orthopnea Condition: Stable Disposition: ADMITTED INPATIENT Admitting Provider: Bran (Hospitalist) Unit Admitted: Telemetry
[2019-02-18] MEDS ORDERED: CLONAZEPAM 1 MG TABLET PO ONE (20:30)
[2019-02-18] MEDS ORDERED: HYDRALAZINE HCL INJ/PF 20 MG/1 ML SDV IV PRN (21:26)
[2019-02-18] MEDS ORDERED: HEPARIN SOD (PORCINE) 5,000 UNIT/ML 1 ML VIAL SUBCUT SCH (22:00)
[2019-02-18] MEDS ORDERED: TIZANIDINE HCL 4 MG TABLET PO PRN (22:50)
[2019-02-18] MEDS: APIXABAN 5 MG TABLET PO SCH (23:05)
[2019-02-18] MEDS: FUROSEMIDE 40 MG TABLET PO SCH (23:05)
[2019-02-18 23:14] LABS: ARTERIAL BLOOD BASE EXCESS -1.8 mmol/L; ARTERIAL BLOOD FIO2 ROOM AIR; ARTERIAL BLOOD H2CO3 1.03 mmol/L (1.05-1.35); ARTERIAL BLOOD O2 SATURATION 97.1 % (94-98); ARTERIAL BLOOD PCO2 34.2 mmHg (35-45); ARTERIAL BLOOD PH 7.43 (7.35-7.45); ARTERIAL BLOOD PO2 89.3 mmHg (80-100)
[2019-02-18] MEDS: CHLORPHENIRAMINE MALEATE 4 MG TABLET PO SCH (23:34)
[2019-02-19] MEDS: FLUTICASONE NASAL SPRAY 50 MCG/SPRY 120 SPRAY/16 GM NASL SCH ×3 (00:45→21:33)
[2019-02-19] MEDS: IPRATROPIUM/ALBUTEROL 0.5-2.5 MG/3 ML AMPUL NEB SCH ×3 (01:01→15:53)
[2019-02-19 03:19] LABS: ABSOLUTE EOSINOPHILS # (AUTO) 0.1 10^3/uL (0.0-0.6); ABSOLUTE MONOCYTES (AUTO) 0.5 10^3/uL (0.1-1.4); ABSOLUTE NEUT (AUTO) 2.4 10^3/uL (1.7-8.2); BASOPHILS % (AUTO) 0.3 % (0-2); HEMATOCRIT 34.5 % (36.0-47.0); HEMOGLOBIN 11.6 g/dL (12.0-15.5); LYMPHOCYTES % (AUTO) 25.2 % (13-45); MEAN CORPUSCULAR HEMOGLOBIN 30.2 pg (27.0-33.4); MEAN CORPUSCULAR HGB CONC 33.7 g/dL (32.0-36.0); MEAN CORPUSCULAR VOLUME 90 fl (80-97); MONOCYTES % (AUTO) 12.1 % (3-13); PLATELET COUNT 127 10^3/uL (150-450); RED BLOOD COUNT 3.85 10^6/uL (3.72-5.28); SEGMENTED NEUTROPHILS % (AUTO) 60.4 % (42-78); TOTAL CELLS COUNTED % (AUTO) 100 %; WHITE BLOOD COUNT 3.9 10^3/uL (4.0-10.5)
[2019-02-19 03:44] LABS: ANION GAP 9 (5-19); BLOOD UREA NITROGEN 14 mg/dL (7-20); CALCIUM 10.2 mg/dL (8.4-10.2); CARBON DIOXIDE 30 mmol/L (22-30); CHLORIDE 105 mmol/L (98-107); GLUCOSE 106 mg/dL (75-110)
[2019-02-19] MEDS: CHLORPHENIRAMINE MALEATE 4 MG TABLET PO SCH ×3 (03:52→17:48)
--- NOTE | 2019-02-19 03:55 | PDOC H&P ---
History of Present Illness Admission Date/PCP: 02/18/19 20:20 Patient complains of: Shortness of breath History of Present Illness: LUIS BRAVO is a 83 year old female with a past medical history of atrial fibrillation status post permanent pacemaker placement on Eliquis,, hypothyroidism, GERD, and mild anxiety. She presents with several nights of palpitations at night developing shortness of breath she seeks evaluation emergency room where she is found to have an unremarkable work-up with exception to an elevated BNP of 2190. She receives Lasix and referred to the hospitalist for admission. She denies chest pain nausea vomiting or recent change in medi cations, diet or weight change. She has several failed attempts at evaluation of obstructive sleep apnea as she was unable to sleep during studies. She denies headaches, awakening fatigue and significant change in daytime energy. Past Medical History Cardiac Medical History: Reports: Atrial Fibrillation, Congestive Heart Failure, Hyperlipidema Pulmonary Medical History: Reports: Bronchitis, Chronic Obstructive Pulmonary Disease (COPD) Endocrine Medical History: Reports: Hypothyroidism GI Medical History: Reports: Gastroesophageal Reflux Disease Musculoskeltal Medical History: Reports: Arthritis Psychiatric Medical History: Reports: Depression, General Anxiety Disorder Past Surgical History Past Surgical History: Reports: Appendectomy, Cholecystectomy, Orthopedic Surgery - left hip/leg, l shoulder 11/08, Tubal Ligation Social History Information Source: Patient, [facility] Records Lives with: Alone Smoking Status: Never Smoker Frequency of Alcohol Use: None Hx Recreational Drug Use: Yes Drugs: None Hx Prescription Drug Abuse: No - Advance Directive Resuscitation Status: Full Code Family History Family History: Hypertension Parental Family History Reviewed: Yes Children Family History Reviewed: Yes Sibling(s) Family History Reviewed.: Yes Medication/Allergy Home Medications: Apixaban [Eliquis 5 mg Tablet] 5 mg PO Q12 02/18/19 Celecoxib [Celebrex 200 mg Capsule] 200 mg PO DAILY 02/18/19 Clonazepam [Klonopin] 0.5 mg PO QHS 02/18/19 Clonazepam [Klonopin] 1 mg PO DAILY 02/18/19 Docusate Sodium [Colace 100 mg Capsule] 100 mg PO DAILYP PRN 02/18/19 Fenofibrate 160 mg PO DAILY 02/18/19 Levothyroxine Sodium [Synthroid 0.05 mg Tablet] 0.05 mg PO Q6AM 02/18/19 Pantoprazole Sodium [Protonix [address] Tablet] 40 mg PO Q6AM 02/18/19 Tizanidine HCl [Zanaflex 4 mg Tablet] 4 mg PO HSP PRN 02/18/19 Allergies/Adverse Reactions: ceftriaxone sodium [From Rocephin] Allergy (Verified 02/18/19 15:54) ciprofloxacin [From Cipro] Allergy (Verified 02/18/19 15:54) ciprofloxacin HCl [From Cipro] Allergy (Verified 02/18/19 15:54) Iodinated Contrast Media [IV Dye, Iodine Containing] Allergy (Verified 02/18/19 15:54) Sulfa (Sulfonamide Antibiotics) Allergy (Verified 02/18/19 15:54) Review of Systems Constitutional: ABSENT: chills, fever(s), headache(s), weight gain, weight loss Eyes: ABSENT: visual disturbances Ears: ABSENT: hearing changes Cardiovascular: PRESENT: palpitations. ABSENT: chest pain, dyspnea on exertion, edema, orthropnea Respiratory: ABSENT: cough, hemoptysis Gastrointestinal: ABSENT: abdominal pain, constipation, diarrhea, hematemesis, hematochezia, nausea, vomiting Genitourinary: ABSENT: dysuria, hematuria Musculoskeletal: ABSENT: joint swelling Integumentary: ABSENT: rash, wounds Neurological: ABSENT: abnormal gait, abnormal speech, confusion, dizziness, foca l weakness, syncope Psychiatric: ABSENT: anxiety, depression, homidical ideation, suicidal ideation Endocrine: ABSENT: cold intolerance, heat intolerance, polydipsia, polyuria Hematologic/Lymphatic: ABSENT: easy bleeding, easy bruising Physical Exam Vital Signs: Temp Pulse Resp BP Pulse Ox 97.5 F 63 17 139/69 H 100 02/19/19 00:00 02/19/19 02:00 02/19/19 01:01 02/19/19 00:00 02/19/19 01:01 Intake & Output 02/17/19 02/18/19 02/19/19 11:59 11:59 11:59 Weight 62.3 kg General appearance: PRESENT: no acute distress, cooperative, well-developed, well-nourished Head exam: PRESENT: atraumatic, normocephalic Eye exam: PRESENT: conjunctiva pink, EOMI, PERRLA. ABSENT: scleral icterus Ear exam: PRESENT: normal external ear exam Mouth exam: PRESENT: moist, tongue midline Neck exam: ABSENT: carotid bruit, JVD, lymphadenopathy, thyromegaly Respiratory exam: PRESENT: clear to auscultation mary, crackles. ABSENT: accessory muscle use, rales, rhonchi, wheezes Cardiovascular exam: PRESENT: irregular rhythm. ABSENT: diastolic murmur, rubs, systolic murmur Pulses: PRESENT: normal dorsalis pedis pul Vascular exam: PRESENT: normal capillary refill GI/Abdominal exam: PRESENT: normal bowel sounds, soft. ABSENT: distended, guarding, mass, organolmegaly, rebound, tenderness Rectal exam: PRESENT: deferred Extremities exam: PRESENT: full ROM. ABSENT: calf tenderness, clubbing, pedal edema Neurological exam: PRESENT: alert, awake, oriented to person, oriented to place, oriented to time, oriented to situation, CN II-XII grossly intact. ABSENT: motor sensory deficit Psychiatric exam: PRESENT: appropriate affect, normal mood. ABSENT: homicidal i deation, suicidal ideation Skin exam: PRESENT: dry, intact, warm. ABSENT: cyanosis, rash Results Laboratory Results: 02/19/19 02:51 02/18/19 02/18/19 02/18/19 17:38 17:38 17:38 WBC 4.5 RBC 3.92 Hgb 11.9 L Hct 35.7 L MCV 91 MCH 30.5 MCHC 33.5 RDW 13.8 Plt Count 143 L Seg Neutrophils % 73.0 Carbonic Acid HCO3/H2CO3 Ratio ABG pH ABG pCO2 ABG pO2 ABG HCO3 ABG O2 Saturation ABG Base Excess FiO2 Sodium 142.6 Potassium 4.2 Chloride 107 Carbon Dioxide 27 Anion Gap 9 BUN 15 Creatinine 0.71 Est GFR ( Amer) > 60 Glucose 114 H Calcium 10.2 Magnesium Total Bilirubin 0.9 AST 42 H Alkaline Phosphatase 62 Total Protein 7.2 Albumin 4.3 TSH Urine Color YELLOW Urine Appearance CLEAR Urine pH 5.0 Ur Specific Cucumber 1.014 Urine Protein NEGATIVE Urine Glucose (UA) NEGATIVE Urine Ketones NEGATIVE Urine Blood SMALL H Urine Nitrite NEGATIVE Ur Leukocyte Esterase SMALL H Urine WBC (Auto) 10 Urine RBC (Auto) 1 02/18/19 02/18/19 02/18/19 17:38 17:38 23:05 WBC RBC Hgb Hct MCV MCH MCHC RDW Plt Count Seg Neutrophils % Carbonic Acid 1.03 L HCO3/H2CO3 Ratio 21:1 ABG pH 7.43 ABG pCO2 34.2 L ABG pO2 89.3 ABG HCO3 22.0 ABG O2 Saturation 97.1 ABG Base Excess -1.8 FiO2 ROOM AIR Sodium Potassium Chloride Carbon Dioxide Anion Gap BUN Creatinine Est GFR ( Amer) Glucose Calcium Magnesium 1.7 Total Bilirubin AST Alkaline Phosphatase Total Protein Albumin TSH 3.67 Urine Color Urine Appearance Urine pH Ur Specific Cucumber Urine Protein Urine Glucose (UA) Urine Ketones Urine Blood Urine Nitrite Ur Leukocyte Esterase Urine WBC (Auto) Urine RBC (Auto) 02/19/19 02:51 WBC 3.9 L RBC 3.85 Hgb 11.6 L Hct 34.5 L MCV 90 MCH 30.2 MCHC 33.7 RDW 14.0 Plt Count 127 L Seg Neutrophils % 60.4 Carbonic Acid HCO3/H2CO3 Ratio ABG pH ABG pCO2 ABG pO2 ABG HCO3 ABG O2 Saturation ABG Base Excess FiO2 Sodium Potassium Chloride Carbon Dioxide Anion Gap BUN Creatinine Est GFR ( Amer) Glucose Calcium Magnesium Total Bilirubin AST Alkaline Phosphatase Total Protein Albumin TSH Urine Color Urine Appearance Urine pH Ur Specific Cucumber Urine Protein Urine Glucose (UA) Urine Ketones Urine Blood Urine Nitrite Ur Leukocyte Esterase Urine WBC (Auto) Urine RBC (Auto) 02/18/19 02/18/19 02/18/19 17:38 17:38 17:38 Creatine Kinase 90 Troponin I < 0.012 NT-Pro-B Natriuret Pep 2190 H 02/18/19 20:25 Creatine Kinase Troponin I < 0.012 NT-Pro-B Natriuret Pep Impressions: Chest X-Ray 02/18/19 00:00 IMPRESSION: Small bilateral pleural effusions with minimal bibasilar opacities, likely atelectasis. Stable enlarged cardiac silhouette. Assessment and Plan - Diagnosis (1) Congestive heart failure Is this a current diagnosis for this admission?: Yes Plan: Likely secondary to uncontrolled A. fib, currently rate controlled in the 70s without medication, trial low-dose Lasix, fluid restriction, education, obtain echocardiogram (2) Atrial fibrillation Is this a current diagnosis for this admission?: Yes Plan: Rate controlled without medication, continue Eliquis, follow-up TSH consider reevaluation for obstructive sleep apnea as outpatient (3) Hypothyroidism Is this a current diagnosis for this admission?: Yes Plan: Follow-up TSH (4) Obstructive sleep apnea Is this a current diagnosis for this admission?: Yes Plan: Suspected given history of uncontrolled A. fib occurring at night, consider reevaluation of obstructive sleep apnea as outpatient. - Time Time Spent with patient: 35 or more minutes
[2019-02-19 04:03] LABS: POTASSIUM 3.2 mmol/L (3.6-5.0)
[2019-02-19] MEDS: LEVOTHYROXINE SODIUM 0.05 MG TABLET PO SCH (05:10)
[2019-02-19] MEDS: PANTOPRAZOLE SODIUM 40 MG TABLET.DR PO SCH (05:10)
[2019-02-19] MEDS: FENOFIBRATE NANOCRYSTALLIZED 145 MG TABLET PO SCH (09:24)
[2019-02-19] MEDS: APIXABAN 5 MG TABLET PO SCH ×2 (09:24→21:32)
[2019-02-19] MEDS: DOCUSATE SODIUM 100 MG CAPSULE PO SCH ×3 (09:24→17:48)
[2019-02-19] MEDS: FUROSEMIDE 40 MG TABLET PO SCH ×2 (09:24→17:49)
[2019-02-19] MEDS ORDERED: POTASSIUM CHLORIDE 10 MEQ CAPSULE.ER PO ONE (16:04)
[2019-02-19] MEDS ORDERED: TRAMADOL HCL 50 MG TABLET PO PRN (16:34)
[2019-02-19] MEDS: PREDNISONE 20 MG TABLET PO SCH (17:47)
[2019-02-19] MEDS: GUAIFENESIN 600 MG TABLET.SA PO SCH (21:32)
--- NOTE | 2019-02-19 22:48 | PDOC PROGRESS REPORT ---
Subjective Progress Note for:: 02/19/19 Subjective:: Patient was seen on afternoon rounds. She was found resting in bed, comfortably, on room air. She does continue to have slight BELLA, though is comfortable at rest and speaks full sentences. Also complains of frequent nonproductive cough. Denies fever, chills, chest pain, palpitations, abd pain, n/v/d Reason For Visit: SOB Physical Exam Vital Signs: Temp Pulse Resp BP Pulse Ox 97.9 F 70 16 132/54 H 95 02/19/19 19:38 02/19/19 19:38 02/19/19 19:38 02/19/19 19:38 02/19/19 19:38 Intake & Output 02/18/19 02/19/19 02/20/19 06:59 06:59 06:59 Intake Total 760 Output Total 1900 2150 Balance -1900 -1390 Weight 62.3 kg General appearance: PRESENT: no acute distress, cooperative - pleasant, well-developed, well-nourished Head exam: PRESENT: atraumatic, normocephalic Eye exam: PRESENT: conjunctiva pink, EOMI, PERRLA. ABSENT: scleral icterus Ear exam: PRESENT: normal external ear exam Mouth exam: PRESENT: moist, tongue midline Neck exam: ABSENT: carotid bruit, JVD, lymphadenopathy, thyromegaly Respiratory exam: PRESENT: prolonged expiratory phas, rhonchi, symmetrical, unlabored, wheezes - throughout. ABSENT: rales Cardiovascular exam: PRESENT: irregular rhythm, +S1, +S2. ABSENT: diastolic murmur, rubs, systolic murmur Pulses: PRESENT: normal dorsalis pedis pul Vascular exam: PRESENT: normal capillary refill GI/Abdominal exam: PRESENT: normal bowel sounds, soft. ABSENT: distended, guarding, mass, organolmegaly, rebound, tenderness Rectal exam: PRESENT: deferred Extremities exam: PRESENT: full ROM. ABSENT: calf tenderness, clubbing, pedal edema Neurological exam: PRESENT: alert, awake, oriented to person, oriented to place, oriented to time, oriented to situation, CN II-XII grossly intact. ABSENT: motor sensory deficit Psychiatric exam: PRESENT: appropriate affect, normal mood. ABSENT: homicidal ideation, suicidal ideation Skin exam: PRESENT: dry, intact, warm. ABSENT: cyanosis, rash Results Laboratory Results: 02/19/19 02:51 02/19/19 02:51 02/18/19 02/19/19 02/19/19 23:05 02:51 02:51 WBC 3.9 L RBC 3.85 Hgb 11.6 L Hct 34.5 L MCV 90 MCH 30.2 MCHC 33.7 RDW 14.0 Plt Count 127 L Seg Neutrophils % 60.4 Carbonic Acid 1.03 L HCO3/H2CO3 Ratio 21:1 ABG pH 7.43 ABG pCO2 34.2 L ABG pO2 89.3 ABG HCO3 22.0 ABG O2 Saturation 97.1 ABG Base Excess -1.8 FiO2 ROOM AIR Sodium 143.7 Potassium 3.2 L D Chloride 105 Carbon Dioxide 30 Anion Gap 9 BUN 14 Creatinine 0.68 Est GFR ( Amer) > 60 Glucose 106 Calcium 10.2 02/18/19 02/18/19 02/18/19 17:38 17:38 17:38 Creatine Kinase 90 Troponin I < 0.012 NT-Pro-B Natriuret Pep 2190 H 02/18/19 02/19/19 02/19/19 20:25 02:51 08:22 Creatine Kinase Troponin I < 0.012 < 0.012 < 0.012 NT-Pro-B Natriuret Pep 02/19/19 14:42 Creatine Kinase Troponin I < 0.012 NT-Pro-B Natriuret Pep Impressions: Chest X-Ray 02/18/19 00:00 IMPRESSION: Small bilateral pleural effusions with minimal bibasilar opacities, likely atelectasis. Stable enlarged cardiac silhouette. Assessment and Plan - Diagnosis (1) COPD exacerbation Is this a current diagnosis for this admission?: Yes Plan: Patient w/ BELLA, wheezing, rhonchi, and cough. Will provided supplemental oxygen to maintain saturations >89% Scheduled and as needed nebulizer treatments. Start p.o. prednisone. Mucinex twice daily. IS and Flutter valve to bedside. No indications for antibiotic therapy at this time. (2) Atrial fibrillation Is this a current diagnosis for this admission?: Yes Plan: Rate controlled without medication, continue Eliquis Recommend reevaluation for obstructive sleep apnea as outpatient (3) Congestive heart failure Is this a current diagnosis for this admission?: Yes Plan: Likely secondary to uncontrolled A. fib, currently rate controlled in the 70s without medication Last echo on file from 2015; low normal LVEF at that time. Patient now on room air, no peripheral edema or crackles. Cotninue low-dose Lasix today; excellent urinary output Continue fluid restriction and cardiac diet. Consider obtaining echocardiogram. Will discuss w/ patient; if she is established with performance instructor, may consider discharge w/ close outpatient follow up. (4) Hypothyroidism Is this a current diagnosis for this admission?: Yes Plan: TSH is acceptable Continue home dose synthroid (5) Obstructive sleep apnea Is this a current diagnosis for this admission?: Yes Plan: Suspected given history of uncontrolled A. fib occurring at night Recommend reevaluation of obstructive sleep apnea as outpatient. - Time Time Spent with patient: 15-24 minutes Medications reviewed and adjusted accordingly: Yes Anticipated discharge: Home Within: within 24 hours
--- NOTE | 2019-02-19 22:49 | Progress Note Acknowledgement ---
Progress Note Acknowledgement Progess Note Acknowledgement: I, the undersigned member of the medical staff with appropriate privileges and with supervisory authority over Jayashree Bernard, a [facility] allied health professional, acknowledge that I have reviewed the progress notes entered on this patient, and in my professional judgment believe that the assessment made and/or any care evidenced was appropriate
[2019-02-20] MEDS: IPRATROPIUM/ALBUTEROL 0.5-2.5 MG/3 ML AMPUL NEB SCH ×3 (00:12→16:05)
[2019-02-20 05:15] LABS: HEMATOCRIT 36.3 % (36.0-47.0); HEMOGLOBIN 12.3 g/dL (12.0-15.5); MEAN CORPUSCULAR HEMOGLOBIN 30.2 pg (27.0-33.4); MEAN CORPUSCULAR HGB CONC 33.7 g/dL (32.0-36.0); MEAN CORPUSCULAR VOLUME 89 fl (80-97); PLATELET COUNT 169 10^3/uL (150-450); RED BLOOD COUNT 4.06 10^6/uL (3.72-5.28); RED CELL DISTRIBUTION WIDTH 13.7 % (11.5-14.0); WHITE BLOOD COUNT 3.9 10^3/uL (4.0-10.5)
[2019-02-20] MEDS: LEVOTHYROXINE SODIUM 0.05 MG TABLET PO SCH (05:19)
[2019-02-20] MEDS: PANTOPRAZOLE SODIUM 40 MG TABLET.DR PO SCH (05:19)
[2019-02-20 05:35] LABS: ANION GAP 13 (5-19); BLOOD UREA NITROGEN 16 mg/dL (7-20); CALCIUM 10.4 mg/dL (8.4-10.2); CARBON DIOXIDE 29 mmol/L (22-30); CHLORIDE 99 mmol/L (98-107); GLUCOSE 145 mg/dL (75-110); POTASSIUM 4.3 mmol/L (3.6-5.0)
[2019-02-20] MEDS: DOCUSATE SODIUM 100 MG CAPSULE PO SCH (09:00)
[2019-02-20] MEDS: FENOFIBRATE NANOCRYSTALLIZED 145 MG TABLET PO SCH (09:00)
[2019-02-20] MEDS: FLUTICASONE NASAL SPRAY 50 MCG/SPRY 120 SPRAY/16 GM NASL SCH (09:01)
[2019-02-20] MEDS: GUAIFENESIN 600 MG TABLET.SA PO SCH (09:01)
[2019-02-20] MEDS: PREDNISONE 20 MG TABLET PO SCH (09:01)
[2019-02-20] MEDS: APIXABAN 5 MG TABLET PO SCH (09:01)
[2019-02-20 14:04] VITALS: BP 139/69
--- NOTE | 2019-02-23 08:16 | PDOC DISCHARGE SUMMARY ---
General - Admit/Disc Date/PCP Admission Date/Primary Care Provider: 02/18/19 20:20 Discharge Date: 02/20/19 - Discharge Diagnosis (1) COPD exacerbation Is this a current diagnosis for this admission?: Yes Summary: Resolved. Patient is now asymptomatic and ambulatory on room air. She was admitted to the medical floor and supported with supplemental oxygen, scheduled and as needed nebulizer treatments, steroid therapy, and mucinex. Pulmonary toilet was encouraged with incentive spirometry and flutter valve. At time of discharge, patient is asymptomatic and ambulatory on room air. She is discharged home in stable condition. She is advised to follow-up with her primary care provider within 1 week. She is encouraged to return to the emergency department as needed for concerning symptoms. (2) Atrial fibrillation Is this a current diagnosis for this admission?: Yes Summary: Rate controlled without medication, continue Eliquis Recommend reevaluation for obstructive sleep apnea as outpatient (3) Congestive heart failure Is this a current diagnosis for this admission?: Yes Summary: Patient with history of chronic diastolic CHF. Stable and without exacerbation at this time. Last echo on file from 2015; low normal LVEF at that time. Patient now on room air, no peripheral edema or crackles. She did receive 1 dose of IV furosemide. Patient was educated on appropriate fluid restriction and cardiac diet. She was encouraged to weigh yourself daily and to report any weight gain of greater than 2 pounds overnight to her provider. 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 (4) Hypothyroidism Is this a current diagnosis for this admission?: Yes Summary: TSH is acceptable Continue home dose synthroid (5) Obstructive sleep apnea Is this a current diagnosis for this admission?: Yes Summary: Suspected given history of uncontrolled A. fib occurring at night Recommend reevaluation of obstructive sleep apnea as outpatient. - Additional Information Resuscitation Status: Full Code Discharge Diet: Cardiac, Diabetic Discharge Activity: Activity As Tolerated, Balance Activity w/Rest, Weigh Daily Prescriptions: Prednisone [Deltasone 20 mg Tablet] 60 mg PO DAILY #12 tablet Ipratropium/Albuterol Sulfate [Duoneb 3 ml Ampul] 3 ml NEB [id number] PRN #60 vial.neb PRN Reason: Fluticasone Propionate [Flonase Nasal Houck 50 Mcg/Houck 16 gm] 2 spray NASL Q12 #1 spray.pump Guaifenesin [Mucinex Sr 600 mg Tablet.sa] 600 mg PO Q12 #14 tablet.sa Tramadol HCl [Ultram 50 mg Tablet] 50 mg PO Q6HP PRN #20 tablet PRN Reason: Albuterol Sulfate [Ventolin 0.083% Neb 2.5 mg/3 mL Ampul] 1 vial NEB Q4HP PRN #60 vial PRN Reason: shortness of breath, wheezing Home Medications: Apixaban [Eliquis 5 mg Tablet] 5 mg PO Q12 02/18/19 Celecoxib [Celebrex 200 mg Capsule] 200 mg PO DAILY 02/18/19 Clonazepam [Klonopin] 0.5 mg PO QHS 02/18/19 Clonazepam [Klonopin] 1 mg PO DAILY 02/18/19 Docusate Sodium [Colace 100 mg Capsule] 100 mg PO DAILYP PRN 02/18/19 Fenofibrate 160 mg PO DAILY 02/18/19 Levothyroxine Sodium [Synthroid 0.05 mg Tablet] 0.05 mg PO Q6AM 02/18/19 Pantoprazole Sodium [Protonix [address] Tablet] 40 mg PO Q6AM 02/18/19 Tizanidine HCl [Zanaflex 4 mg Tablet] 4 mg PO HSP PRN 02/18/19 Acetaminophen [Tylenol 325 mg Tablet] 650 mg PO Q4HP PRN tablet 02/20/19 Albuterol Sulfate [Ventolin 0.083% Neb 2.5 mg/3 mL Ampul] 1 vial NEB Q4HP PRN #60 vial 02/20/19 Fluticasone Propionate [Flonase Nasal Houck 50 Mcg/Houck 16 gm] 2 spray NASL Q12 #1 spray.pump 02/20/19 Guaifenesin [Mucinex Sr 600 mg Tablet.sa] 600 mg PO Q12 #14 tablet.sa 02/20/19 Ipratropium/Albuterol Sulfate [Duoneb 3 ml Ampul] 3 ml NEB [id number] PRN #60 vial.neb 02/20/19 Prednisone [Deltasone 20 mg Tablet] 60 mg PO DAILY #12 tablet 02/20/19 Tramadol HCl [Ultram 50 mg Tablet] 50 mg PO Q6HP PRN #20 tablet 02/20/19 History of Present Illness History of Present Illness: Per H&P by Dr. Sotomayor: LUIS BRAVO is a 83 year old female with a past medical history of atrial fibrillation status post permanent pacemaker placement on Eliquis,, hypothyroidism, GERD, and mild anxiety. She presents with several nights of palpitations at night developing shortness of breath she seeks [facility] emergency room where she is found to have an unremarkable work-up with exception to an elevated BNP of 2190. She receives Lasix and referred to the hospitalist for admission. She denies chest pain nausea vomiting or recent change in medications, diet or weight change. She has several failed attempts at evaluation of obstructive sleep apnea as she was unable to sleep during studies. She denies headaches, awakening fatigue and significant change in daytime energy. Physical Exam Vital Signs: Temp Pulse Resp BP Pulse Ox 97.7 F 76 16 139/69 H 95 02/20/19 14:03 02/20/19 16:05 02/20/19 16:05 02/20/19 14:03 02/20/19 16:05 General appearance: PRESENT: no acute distress, cooperative - Pleasant, well- developed, well-nourished Head exam: PRESENT: atraumatic, normocephalic Eye exam: PRESENT: conjunctiva pink, EOMI, PERRLA. ABSENT: scleral icterus Ear exam: PRESENT: normal external ear exam Mouth exam: PRESENT: moist, tongue midline Neck exam: ABSENT: carotid bruit, JVD, lymphadenopathy, thyromegaly Respiratory exam: PRESENT: clear to auscultation mary, symmetrical, unlabored. ABSENT: rales, rhonchi, wheezes Cardiovascular exam: PRESENT: RRR. ABSENT: diastolic murmur, rubs, systolic murmur Pulses: PRESENT: normal dorsalis pedis pul Vascular exam: PRESENT: normal capillary refill GI/Abdominal exam: PRESENT: normal bowel sounds, soft. ABSENT: distended, guarding, mass, organolmegaly, rebound, tenderness Rectal exam: PRESENT: deferred Extremities exam: PRESENT: full ROM. ABSENT: calf tenderness, clubbing, pedal edema Musculoskeletal exam: PRESENT: ambulatory Neurological exam: PRESENT: alert, awake, oriented to person, oriented to place, oriented to time, oriented to situation, CN II-XII grossly intact. ABSENT: motor sensory deficit Psychiatric exam: PRESENT: appropriate affect, normal mood. ABSENT: homicidal ideation, suicidal ideation Skin exam: PRESENT: dry, intact, warm. ABSENT: cyanosis, rash Results Laboratory Results: 02/20/19 04:37 02/20/19 04:37 02/18/19 02/18/19 02/18/19 17:38 17:38 17:38 Creatine Kinase 90 Troponin I < 0.012 NT-Pro-B Natriuret Pep 2190 H 02/18/19 02/19/19 02/19/19 20:25 02:51 08:22 Creatine Kinase Troponin I < 0.012 < 0.012 < 0.012 NT-Pro-B Natriuret Pep 02/19/19 14:42 Creatine Kinase Troponin I < 0.012 NT-Pro-B Natriuret Pep Impressions: Chest X-Ray 02/18/19 00:00 IMPRESSION: Small bilateral pleural effusions with minimal bibasilar opacities, likely atelectasis. Stable enlarged cardiac silhouette. Qualifiers - * PATIENT BEING DISCHARGED WITH ANY OF THE FOLLOWING DIAGNOSIS: No Acute Heart Failure - Is this a Heart Failure Patient?: No Plan Discharge Plan: Patient is discharged to home in stable condition. She is instructed to follow up with her primary care provider within 1 week. Take medications as prescribed. Eat a low sodium diet. Weigh daily and report and weight gain of greater than 2 pounds overnight to provider. Return to the emergency department as needed for concerning symptoms. Time Spent: Less than 30 Minutes
== END 2019-02-20 16:45 | disposition home or self-care (01) ==
LOC: ER 15:47 → EH 20:20 → INTOOBSV 20:20 → 4S 22:38
PROVIDERS: ADMIT Internal Medicine; ATTEND Internal Medicine
DX: J44.1 Chronic obstructive pulmonary disease with (acute) exacerbation (principal); I48.91 Unspecified atrial fibrillation; E03.9 Hypothyroidism, unspecified; G47.33 Obstructive sleep apnea (adult) (pediatric); I50.32 Chronic diastolic (congestive) heart failure; K21.9 Gastro-esophageal reflux disease without esophagitis; F41.1 Generalized anxiety disorder; M19.90 Unspecified osteoarthritis, unspecified site; R53.81 Other malaise; R53.1 Weakness; Z95.0 Presence of cardiac pacemaker; Z79.02 Long term (current) use of antithrombotics/antiplatelets; Z79.899 Other long term (current) drug therapy; Z60.2 Problems related to living alone; Z82.49 Family history of ischemic heart disease and other diseases of the circulatory system
CPT/HCPCS: 93005; 99285; 36415 ×3; 82803; 82550; 83735; 84443; 85025 ×2; 85027; 85610; 85730; 80048 ×2; 80053; 81001; 84484 ×2; 83880; 71046; 94799; 93010; 36600; 94640 ×3; 97161; G0378 ×4; A9270 ×24; J3490 ×2; J7512; J7620

== ENCOUNTER 2019-02-27 14:20 | Emergency (ER) | payer MEDICARE, OTHER ==
--- NOTE | 2019-02-27 14:28 | ER Document Report ---
ED Medical Screen (RME) - General Chief Complaint: Shortness Of Breath Stated Complaint: SHORTNESS OF BREATH Time Seen by Provider: 02/27/19 14:26 Mode of Arrival: Wheelchair Information source: Patient Notes: 83-year-old female presented to ED for complaint of shortness of breath and headache since yesterday. She has a history of CHF and COPD. She states she is gained 10 pounds since last week when she was discharged. She they told her if she gained any weight to come back and. She does have 1-2+ pitting edema bilaterally. Patient is alert oriented respirations regular and unlabored speaking in full sentences. She states she does have a history of back surgery left shoulder surgery left bursa removed from her hip and gallbladder and appendix removed. She denies smoking drinking or doing any drugs. Her son is with her states he is not sure why they sent her home with no Lasix when they knew she was having retention of fluids. I have greeted and performed a rapid initial assessment of this patient. A comprehensive ED assessment and evaluation of the patient, analysis of test results and completion of medical decision making process will be conducted by an additional ED providers. TRAVEL OUTSIDE OF THE [place] IN LAST 30 DAYS: No - Related Data Allergies/Adverse Reactions: ceftriaxone sodium [From Rocephin] Allergy (Verified 02/27/19 14:22) ciprofloxacin [From Cipro] Allergy (Verified 02/27/19 14:22) ciprofloxacin HCl [From Cipro] Allergy (Verified 02/27/19 14:22) Iodinated Contrast Media [IV Dye, Iodine Containing] Allergy (Verified 02/27/19 14:22) Sulfa (Sulfonamide Antibiotics) Allergy (Verified 02/27/19 14:22) Past Medical History - Past Medical History Cardiac Medical History: Reports: Hx Atrial Fibrillation, Hx Congestive Heart Failure, Hx Hypercholesterolemia Pulmonary Medical History: Reports: Hx Bronchitis, Hx COPD Endocrine Medical History: Reports: Hx Hypothyroidism Renal/ Medical History: Denies: Hx Peritoneal Dialysis GI Medical History: Reports: Hx Gastroesophageal Reflux Disease Musculoskeltal Medical History: Reports Hx Arthritis Psychiatric Medical History: Reports: Hx Depression Past Surgical History: Reports: Hx Appendectomy, Hx Cholecystectomy, Hx Orthopedic Surgery - left hip/leg, l shoulder 11/08, Hx Tubal Ligation - Immunizations Hx Diphtheria, Pertussis, Tetanus Vaccination: No Physical Exam - Vital signs Vitals: Temp Pulse Resp BP Pulse Ox 97.8 F 70 18 132/56 H 98 02/27/19 14:25 02/27/19 14:25 02/27/19 14:25 02/27/19 14:25 02/27/19 14:25 Course - Vital Signs Vital signs: Temp Pulse Resp BP Pulse Ox 97.8 F 70 18 132/56 H 98 02/27/19 14:25 02/27/19 14:25 02/27/19 14:25 02/27/19 14:25 02/27/19 14:25
[2019-02-27 15:08] LABS: ABSOLUTE EOSINOPHILS # (AUTO) 0.1 10^3/uL (0.0-0.6); ABSOLUTE LYMPHOCYTES (AUTO) 1.1 10^3/uL (0.5-4.7); ABSOLUTE MONOCYTES (AUTO) 0.6 10^3/uL (0.1-1.4); ABSOLUTE NEUT (AUTO) 3.5 10^3/uL (1.7-8.2); BASOPHILS % (AUTO) 0.4 % (0-2); EOSINOPHILS % (AUTO) 2.3 % (0-6); HEMOGLOBIN 12.1 g/dL (12.0-15.5); LYMPHOCYTES % (AUTO) 20.4 % (13-45); MEAN CORPUSCULAR HGB CONC 33.6 g/dL (32.0-36.0); MEAN CORPUSCULAR VOLUME 89 fl (80-97); MONOCYTES % (AUTO) 10.9 % (3-13); PLATELET COUNT 171 10^3/uL (150-450); RED BLOOD COUNT 4.03 10^6/uL (3.72-5.28); RED CELL DISTRIBUTION WIDTH 13.8 % (11.5-14.0); TOTAL CELLS COUNTED % (AUTO) 100 %; WHITE BLOOD COUNT 5.3 10^3/uL (4.0-10.5)
[2019-02-27] MEDS ORDERED: ALBUTEROL SULFATE 0.083% NEB 2.5 MG/3 ML AMPUL NEB ONE (15:16)
[2019-02-27 15:26] LABS: ALBUMIN 3.7 g/dL (3.5-5.0); ALKALINE PHOSPHATASE 50 U/L (38-126); ANION GAP 6 (5-19); ASPARTATE AMINO TRANSFERASE 38 U/L (14-36); BILIRUBIN,DIRECT 0.5 mg/dL (0.0-0.4); BILIRUBIN,TOTAL 0.8 mg/dL (0.2-1.3); BLOOD UREA NITROGEN 15 mg/dL (7-20); CALCIUM 9.2 mg/dL (8.4-10.2); CARBON DIOXIDE 26 mmol/L (22-30); CHLORIDE 106 mmol/L (98-107); GLUCOSE 131 mg/dL (75-110); TOTAL PROTEIN 6.3 g/dL (6.3-8.2)
--- NOTE | 2019-02-27 15:29 | ER Document Report ---
ED General - General Chief Complaint: Shortness Of Breath Stated Complaint: SHORTNESS OF BREATH Time Seen by Provider: 02/27/19 14:26 Mode of Arrival: Wheelchair Information source: Patient TRAVEL OUTSIDE OF THE [place] IN LAST 30 DAYS: No - HPI Onset: Yesterday Onset/Duration: Gradual Quality of pain: Sharp Severity: Mild Pain Level: 0 Associated symptoms: Chest pain, Leg swelling, Shortness of breath. denies: Headache, Hurts to breath, Nausea, Vomiting Exacerbated by: Supine, Walking, Deep breathing. denies: Movement Relieved by: Remaining still Similar symptoms previously: Yes - with both chf and copd Recently seen / treated by doctor: Yes - in hospital last week - Related Data Allergies/Adverse Reactions: ceftriaxone sodium [From Rocephin] Allergy (Verified 02/27/19 14:41) ciprofloxacin [From Cipro] Allergy (Verified 02/27/19 14:41) ciprofloxacin HCl [From Cipro] Allergy (Verified 02/27/19 14:41) Iodinated Contrast Media [IV Dye, Iodine Containing] Allergy (Verified 02/27/19 14:41) Sulfa (Sulfonamide Antibiotics) Allergy (Verified 02/27/19 14:41) Past Medical History - General Information source: Patient - Social History Smoking Status: Never Smoker Chew tobacco use (# tins/day): No Frequency of alcohol use: None Drug Abuse: None Lives with: Alone Family History: Hypertension Patient has suicidal ideation: No Patient has homicidal ideation: No - Past Medical History Cardiac Medical History: Reports: Hx Atrial Fibrillation, Hx Congestive Heart Failure, Hx Hypercholesterolemia Pulmonary Medical History: Reports: Hx Bronchitis, Hx COPD, Hx Pneumonia Endocrine Medical History: Reports: Hx Hypothyroidism Renal/ Medical History: Denies: Hx Peritoneal Dialysis GI Medical History: Reports: Hx Gastroesophageal Reflux Disease Musculoskeletal Medical History: Reports Hx Arthritis Psychiatric Medical History: Reports: Hx Depression Past Surgical History: Reports: Hx Appendectomy, Hx Cholecystectomy, Hx Orthopedic Surgery - left hip/leg, l shoulder 11/08,. back surgery, Hx Tubal Ligation - Immunizations Hx Diphtheria, Pertussis, Tetanus Vaccination: No Hx Pneumococcal Vaccination: 06/25/09 Review of Systems - Review of Systems Constitutional: denies: No symptoms reported, See HPI, Chills, Diaphoresis, Fever, Malaise, Weakness, Other, Weight gain, Weight loss, Recent illness EENT: denies: No symptoms reported, See HPI, Eye pain, Eye discharge, Blurred vision, Tearing, Double vision, Ear pain, Ear discharge, Nose pain, Nose congestion, Nose discharge, Sinus pressure, Sinus discharge, Throat pain, Difficulty swallowing, Throat swelling, Mouth pain, Mouth swelling, Dental problem, Vertigo, Other Cardiovascular: Chest pain, Dyspnea Respiratory: Cough, Short of breath, Wheezing Gastrointestinal: No symptoms reported Genitourinary: No symptoms reported -: Yes All other systems reviewed and negative Physical Exam - Vital signs Vitals: Temp Pulse Resp BP Pulse Ox 97.8 F 70 18 132/56 H 98 02/27/19 14:25 02/27/19 14:25 02/27/19 14:25 02/27/19 14:25 02/27/19 14:25 Notes: PHYSICAL EXAMINATION: GENERAL: Well-appearing, well-nourished and in no acute distress. HEAD: Atraumatic, normocephalic. EYES: Pupils equal round and reactive to light, extraocular movements intact, sclera anicteric, conjunctiva are normal. ENT: nares patent, oropharynx clear without exudates. Moist mucous membranes. NECK: Normal range of motion, supple without lymphadenopathy LUNGS: mild wheezes bilaterally. no rales or rhonchi. no chest wall pain to palpation. HEART: Regular rate and rhythm without murmurs ABDOMEN: Soft, nontender, normoactive bowel sounds. No guarding, no rebound. No masses appreciated. EXTREMITIES: Normal range of motion,1+ edema bilaterally. No cords or masses in thighs or calves bilaterally. No cyanosis. NEUROLOGICAL: No focal neurological deficits. Moves all extremities spontaneously and on command. PSYCH: Normal mood, normal affect. SKIN: Warm, Dry, normal turgor, no rashes or lesions noted. Course - Vital Signs Vital signs: Temp Pulse Resp BP Pulse Ox 97.8 F 70 22 H 115/40 L 99 02/27/19 14:25 02/27/19 14:25 02/27/19 19:01 02/27/19 19:01 02/27/19 19:01 - Laboratory Result Diagrams: 02/27/19 14:57 02/27/19 14:57 Laboratory results interpreted by me: 02/27/19 02/27/19 14:57 14:57 Glucose 131 H Direct Bilirubin 0.5 H AST 38 H NT-Pro-B Natriuret Pep 1640 H - Diagnostic Test Radiology results interpreted by me: 02/27/19 15:48 No chest x-ray showing small bilateral pleural effusions per radiology is unchanged from previous last week. Diurese with 40 mg of Lasix IV treat for COPD with albuterol Atrovent Solu-Medrol. Hopefully we will be able to diurese her with 2 troponins being negative she may be able to go home. - EKG Interpretation by Me EKG shows normal: Sinus rhythm Rate: Normal Rhythm: Other - ventricular paced rythm - Transfer of Care Notes: 02/27/19 15:46 Note: per previous d/c summary bnp was 2150 and is decreased today. 02/27/19 18:45 Reexamined patient patient feeling much better shortness of breath decreased patient is able to walk to the bathroom without dyspnea. Awaiting repeat troponin if negative will discharge with a prescription for Lasix. Discharge - Discharge Clinical Impression: CHF exacerbation Condition: Good Disposition: HOME, SELF-CARE Instructions: Congestive Heart Failure ([facility]) Prescriptions: Furosemide [Lasix 20 mg Tablet] 20 mg PO QAM #3 tablet Furosemide [Lasix 20 mg Tablet] 20 mg PO QAM #30 tablet
--- NOTE | 2019-02-27 15:31 | RADIOLOGY REPORT (SQ) ---
EXAM DESCRIPTION: CHEST 2 VIEWS COMPLETED DATE/TIME: 02/27/2019 3:22 pm REASON FOR STUDY: SOB COMPARISON: 02/18/2019 EXAM PARAMETERS: NUMBER OF VIEWS: two views TECHNIQUE: Digital Frontal and Lateral radiographic views of the chest acquired. RADIATION DOSE: NA LIMITATIONS: none FINDINGS: LUNGS AND PLEURA: Small pleural effusions remain not significantly changed from prior stud y. MEDIASTINUM AND HILAR STRUCTURES: No masses or contour abnormalities. HEART AND VASCULAR STRUCTURES: Heart is slightly enlarged. No failure. BONES: No acute findings. HARDWARE: Battery pack and leads remain in place. OTHER: No other significant finding. IMPRESSION: Small pleural effusions. Mild cardiomegaly. No significant change from prior study per TECHNICAL DOCUMENTATION: JOB ID: [id number] [employer]- All Rights Reserved Reading location - IP/workstation name: [email or web address]
[2019-02-27] MEDS ORDERED: FUROSEMIDE INJ/PF 40 MG/4 ML SDV IV ONE (15:45)
[2019-02-27] MEDS ORDERED: IPRATROPIUM BROMIDE 0.02% NEB 0.5 MG/2.5 ML AMPUL NEB ONE (15:45)
[2019-02-27 15:48] LABS: CREATINE KINASE MB 1.03 ng/mL (<4.55); TROPONIN I < 0.012 ng/mL
[2019-02-27 20:12] VITALS: BP 124/49
--- NOTE | 2019-03-02 18:48 | EKG REPORT ---
SEVERITY:- ABNORMAL ECG - VENTRICULAR-PACED RHYTHM : Confirmed by: Lanny Connolly 02-Mar-2019 18:47:00
== END 2019-02-27 20:44 | disposition home or self-care (01) ==
LOC: ER 14:20
DX: I50.9 Heart failure, unspecified (principal); R06.02 Shortness of breath; R07.9 Chest pain, unspecified; M79.89 Other specified soft tissue disorders; J44.9 Chronic obstructive pulmonary disease, unspecified
CPT/HCPCS: 93005; 94640; 99285; 96374; 36415; 82553; 82550; 85025; 80053; 84484; 83880; 71046; 93010; J1940; A9270; J3490

== ENCOUNTER 2020-01-23 06:37 | Emergency (ER) | payer MEDICARE, OTHER ==
--- NOTE | 2020-01-23 10:16 | RADIOLOGY REPORT (SQ) ---
EXAM DESCRIPTION: KUB/ABDOMEN (SINGLE VIEW) IMAGES COMPLETED DATE/TIME: 01/23/2020 9:41 am REASON FOR STUDY: constipation COMPARISON: 07/19/2017 NUMBER OF VIEWS: One view. TECHNIQUE: Supine radiographic image of the abdomen acquired. LIMITATIONS: None. FINDINGS: BOWEL GAS PATTERN: Large amount of stool throughout the colon consistent with constipation . No evidence of mechanical obstruction. CALCIFICATIONS: No suspicious calcifications. SOFT TISSUES: No gross mass or suggestion of organomegaly. HARDWARE: None in the abdomen. BONES: Unchanged. OTHER: No other significant finding. IMPRESSION: Constipation. TECHNICAL DOCUMENTATION: JOB ID: [id number] [employer]- All Rights Reserved Reading location - IP/workstation name: [email or web address]
--- NOTE | 2020-01-23 10:21 | ER Document Report ---
ED GI/ - General Chief Complaint: Constipation Stated Complaint: CONSTIPATION Time Seen by Provider: 01/23/20 09:36 Primary Care Provider: ELO DELA CRUZ MD [Primary Care Provider] - Follow up as needed Notes: CHIEF COMPLAINT: Constipation. HPI: 84-year-old female presenting to the emergency department complaining of constipation last bowel movement was 2 days ago feels like she has pressure in the rectum states she has had to beDisimpacted and cleaned out with enemas previously ROS: See HPI - all other systems were reviewed and are otherwise negative Constitutional: no fever Eyes: no drainage, no blurred vision ENT: no runny nose, no sore throat Cardiovascular: no chest pain Resp: no SOB, no cough GI: no vomiting, no diarrhea, no abdominal pain, positive constipation : no dysuria Integumentary: no rash Allergy: no hives Musculoskeletal: no extremity pain or swelling Neurological: no numbness/tingling, no weakness MEDICATIONS: I agree with the patient medications as charted by the RN. ALLERGIES: I agree with the allergies as charted by the RN. PAST MEDICAL HISTORY/PAST SURGICAL HISTORY: Reviewed and agree as charted by RN. SOCIAL HISTORY: Reviewed and agree as charted by RN. FAMILY HISTORY: No significant familial comorbid conditions directly related to patient complaint EXAM: Reviewed vital signs as charted by RN. CONSTITUTIONAL: Alert and oriented and responds appropriately to questions. Well-appearing; well-nourished HEAD: Normocephalic; atraumatic EYES: PERRL; Conjunctivae clear, sclerae non-icteric ENT: normal nose; no rhinorrhea; moist mucous membranes NECK: Supple without meningismus; non-tender; no cervical lymphadenopathy, no masses CARD: RRR; no murmurs, no clicks, no rubs, no gallops; symmetric distal pulses RESP: Normal chest excursion without splinting or tachypnea; breath sounds clear and equal bilaterally; no wheezes, no rhonchi, no rales, pulse oximetry 88% on room air not hypoxic ABD/GI: Normal bowel sounds; non-distended; soft, non-tender, no rebound, no guarding; no palpable organomegaly or masses. BACK: The back appears normal and is non-tender to palpation, there is no CVA tenderness EXT: Normal ROM in all joints; non-tender to palpation; no cyanosis, no effusions, no edema SKIN: Normal color for age and race; warm; dry; good turgor; no acute lesions noted NEURO: Moves all extremities equally; Motor and sensory function intact PSYCH: The patient's mood and manner are appropriate. Grooming and personal hygiene are appropriate. MDM: 84-year-old female presenting with constipation. KUB suggests constipation Janett and give soapsuds enema TRAVEL OUTSIDE OF THE [place] IN LAST 30 DAYS: No - Related Data Allergies/Adverse Reactions: ceftriaxone sodium [From Rocephin] Allergy (Verified 02/27/19 14:41) ciprofloxacin [From Cipro] Allergy (Verified 02/27/19 14:41) ciprofloxacin HCl [From Cipro] Allergy (Verified 02/27/19 14:41) Iodinated Contrast Media [IV Dye, Iodine Containing] Allergy (Verified 02/27/19 14:41) Sulfa (Sulfonamide Antibiotics) Allergy (Verified 02/27/19 14:41) Home Medications: eliquis, klonzapam, reflux med, chol med, levothyroxine Past Medical History - Social History Smoking Status: Never Smoker Family History: Hypertension Patient has homicidal ideation: No - Past Medical History Cardiac Medical History: Reports: Hx Atrial Fibrillation, Hx Congestive Heart Failure, Hx Hypercholesterolemia Pulmonary Medical History: Reports: Hx Bronchitis, Hx COPD, Hx Pneumonia Endocrine Medical History: Reports: Hx Hypothyroidism Renal/ Medical History: Denies: Hx Peritoneal Dialysis GI Medical History: Reports: Hx Gastroesophageal Reflux Disease Musculoskeletal Medical History: Reports Hx Arthritis Psychiatric Medical History: Reports: Hx Depression Past Surgical History: Reports: Hx Appendectomy, Hx Cholecystectomy, Hx Orthopedic Surgery - left hip/leg, l shoulder 11/08,. back surgery, Hx Tubal Ligation - Immunizations Hx Diphtheria, Pertussis, Tetanus Vaccination: No Hx Pneumococcal Vaccination: 06/25/09 Physical Exam - Vital signs Vitals: Temp Pulse Resp BP Pulse Ox 97.7 F 73 18 125/59 L 100 01/23/20 07:36 01/23/20 07:36 01/23/20 07:36 01/23/20 07:36 01/23/20 07:36 Course - Re-evaluation Re-evalutation: 01/23/20 12:46 Patient had 2 large bowel movements and now feels much better. No abdominal pain on repeat exam will discharge home to continue on MiraLAX twice daily at home - Vital Signs Vital signs: Temp Pulse Resp BP Pulse Ox 97.7 F 73 18 125/59 L 100 01/23/20 07:36 01/23/20 07:36 01/23/20 07:36 01/23/20 07:36 01/23/20 07:36 Discharge - Discharge Clinical Impression: Constipation Qualifiers: Constipation type: unspecified constipation type Qualified Code(s): K59.00 - Constipation, unspecified Condition: Stable Disposition: HOME, SELF-CARE Additional Instructions: Take MiraLAX twice daily at home to help with constipation. You may take milk of magnesia once daily in place of 1 of your MiraLAX doses to help with the constipation. Follow-up with your primary care provider for reevaluation of symptoms call for appointment. Prescriptions: Polyethylene Glycol 3350 [Miralax] 1 cap PO BID 5 Days #527 powder Referrals: ELO DELA CRUZ MD [Primary Care Provider] - Follow up as needed
[2020-01-23 12:55] VITALS: BP 115/69
== END 2020-01-23 13:00 | disposition home or self-care (01) ==
LOC: ER 06:37
DX: K59.00 Constipation, unspecified (principal); I48.91 Unspecified atrial fibrillation; I50.9 Heart failure, unspecified; E78.00 Pure hypercholesterolemia, unspecified
CPT/HCPCS: 74018; 99283